=== PATIENT | male | born 1980 | race Caucasian/White ===

== ENCOUNTER 2020-07-17 14:14 | Emergency (ER) | payer MEDICAID, OTHER ==
[2020-07-17] MEDS ORDERED: Cardizem IV 50 MG/10 ML IV ONE ×2 (14:15)
[2020-07-17] MEDS ORDERED: Adenocard IV 6 MG/2 ML IV ONE ×2 (14:36→14:40)
[2020-07-17] MEDS ORDERED: Sodium Chloride 0.9% 1000 ML 1,000 ML ONE (14:36)
[2020-07-17] MEDS ORDERED: CARDIZEM DRIP 100 MG/100 ML D5W 100 ML IV ONE (14:45)
--- NOTE | 2020-07-17 15:05 | ERPHSYRPT ---
- History of Present Illness Source: patient Exam Limitations: no limitations Patient Subjective Stated Complaint: shaking and heart palpitations Triage Nursing Assessment: pt to ED c/o "shaking" and palpitations. pt states he was in [facility] last month aortic dissection. pt states his HR has been approx 150 bpm lasty 2 days, states "when I was in [facility] I was doing this too and they didnt say it was a big deal so I stayed home." denes pain currently. pt appears pale and diaphoretic. heart sounds clear and regular but tachycardic on auscultation. Physician History: 40 yo wm w palpatations x2 days. Pt has a h/o aortic dissection repaired at [facility] on 06/18/20. He denies chest pain/dyspnea/N/V/D/melena/hematochezia/cough/fever. Pt states that he had similar episodes post-op at [facility]. Initial EKG demonstrated probable SVT. Timing/Duration: day(s) (2 days) Activities at Onset: rest Quality: other (No pain) Location: other (No pain) Chest Pain Radiation: no radiation Severity of Pain-Max: none Severity of Pain-Current: none Modifying Factors: Improves With: nothing Nitro Today/Relief: no nitro taken today Aspirin Treatment Today: no aspirin today Associated Symptoms: No nausea, No vomiting, No abdominal pain, No shortness of breath, No heartburn, No diaphoresis, No cough, No chills, No chest pain, No fever, No headaches, No loss of appetite, No malaise, No rash, No syncope, No seizure, No weakness Prior Chest Pain/Cardiac Workup: recently seen/treated (Aortic dissection repair), recent hospitalization Allergies/Adverse Reactions: No Known Drug Allergies Allergy (Unverified 11/03/12 13:04) Home Medications: Atorvastatin Calcium 40 mg PO DAILY 07/17/20 [History] Losartan Potassium 100 mg PO DAILY 07/17/20 [History] Oxycodone HCl 5 mg PO DAILY 07/17/20 [History] carvediloL [Carvedilol] 25 mg PO DAILY 07/17/20 [History] Hx Tetanus, Diphtheria Vaccination/Date Given: Yes Hx Influenza Vaccination/Date Given: No Hx Pneumococcal Vaccination/Date Given: No Immunizations Up to Date: Yes Travel Risk - International Travel Have you traveled outside of the country in past 3 weeks: No - Coronavirus Screening Are you exhibiting any of the following symptoms?: No Close contact with a COVID-19 positive Pt in past 14-21 Days: No - Review of Systems Constitutional: No Symptoms Eyes: No Symptoms Ears, Nose, & Throat: No Symptoms Respiratory: No Symptoms Cardiac: Palpitations, No Chest Pain, No Edema, No Syncope, No Orthopnea, No PND Abdominal/Gastrointestinal: No Symptoms Genitourinary Symptoms: No Symptoms Musculoskeletal: No Symptoms Skin: No Symptoms Neurological: No Symptoms Psychological: No Symptoms Endocrine: No Symptoms Hematologic/Lymphatic: No Symptoms Immunological/Allergic: No Symptoms - Past Medical History Pertinent Past Medical History: Yes Cardiac History: Other Endocrine Medical History: No Pertinent History, Hyperthyroidism Musculoskeletal History: No Pertinent History GI Medical History: No Pertinent History History: No Pertinent History Psycho-Social History: No Pertinent History Male Reproductive Disorders: No Pertinent History Other Medical History: aortic dissection may 2020 - Past Surgical History Past Surgical History: Yes Respiratory: No Pertinent History Gastrointestinal: No Pertinent History Genitourinary: No Pertinent History Musculoskeletal: No Pertinent History, Orthopedic Surgery Male Surgical History: No Pertinent History Other Surgical History: L shoulder - Social History Smoking Status: Current every day smoker How long have you smoked: 16 YEARS Exposure to second hand smoke: Yes Drug Use: marijuana Patient Lives Alone: No Significant Family History: no pertinent family hx - Nursing Vital Signs Nursing Vital Signs: Initial Vital Signs Temperature 98.0 F 07/17/20 14:22 Pulse Rate 140 H 07/17/20 14:22 Respiratory Rate 20 07/17/20 14:22 Blood Pressure 137/107 07/17/20 14:22 O2 Sat by Pulse Oximetry 99 07/17/20 14:22 Pain Scale Pain Intensity 0 - Physical Exam General Appearance: mild distress Eye Exam: PERRL/EOMI, eyes nml inspection Ears, Nose, Throat Exam: normal ENT inspection, TMs normal, pharynx normal, moist mucous membranes Neck Exam: normal inspection, non-tender, supple, full range of motion, No meningismus, No mass, No Brudzinski, No Kernig's, No carotid bruit Respiratory Exam: normal breath sounds, lungs clear, airway intact, No respiratory distress Cardiovascular Exam: other (Regular/Very tachy) Gastrointestinal/Abdomen Exam: soft, normal bowel sounds, No tenderness, No distention Back Exam: normal inspection, normal range of motion, No CVA tenderness, No vertebral tenderness, No decreased range of motion Extremity Exam: normal inspection, normal range of motion Neurologic Exam: alert, oriented x 3, cooperative, blue prints trimmer II-XII nml as tested, normal mood/affect, nml cerebellar function, nml station & gait, sensation nml, No motor deficits, No sensory deficit Skin Exam: normal color, warm, dry, No rash Lymphatic Exam: No adenopathy SpO2 Interpretation: normal SpO2: 98 O2 Delivery: Room Air - Course Nursing assessment & vital signs reviewed: Yes EKG Interpreted by Me: RATE (Probable SVT/Poor R wave progression/ST-T wave changes/LAFB/prolonged QTc), Other (EKG #2 14:49 Aflutter/Poor Rwave progression/LVH/LAFB) Ordered Tests: Active Orders 24 hr Category Date Time Status Member Service Specialist STAT Care 07/17/20 14:51 Completed EKG-ER Only STAT Care 07/17/20 14:33 Completed IV Insertion STAT Care 07/17/20 14:51 Completed IV Insertion-2nd Peripheral STAT Care 07/17/20 14:51 Completed CHEST 1 VIEW (PORTABLE) Stat Exams 07/17/20 14:33 Completed CBC W DIFF Stat Lab 07/17/20 15:20 Completed CMP Stat Lab 07/17/20 15:20 Completed NT PRO BNP Stat Lab 07/17/20 15:20 Completed PROTIME WITH INR Stat Lab 07/17/20 15:20 Completed PTT Stat Lab 07/17/20 15:20 Completed TROPONIN Q3H Lab 07/17/20 15:32 Completed TROPONIN Q3H Lab 07/17/20 17:54 Completed TROPONIN Q3H Lab 07/17/20 20:45 Ordered TROPONIN Q3H Lab 07/17/20 23:45 Ordered Medication Summary Discontinued Medications Generic Name Dose Route Start Last Admin Trade Name Freq PRN Reason Stop Dose Admin Adenosine Confirm 07/17/20 14:36 Adenocard Iv 6 Mg/2 Ml Administered 07/17/20 14:37 Dose 6 mg IV .STK-MED ONE Adenosine Confirm 07/17/20 14:40 Adenocard Iv 6 Mg/2 Ml Administered 07/17/20 14:41 Dose 12 mg IV .STK-MED ONE Heparin Sodium (Beef Lung) 5,000 unit 07/17/20 17:12 07/17/20 17:24 Heparin 5000 Units/0.5 Ml (High Risk Med) IV 07/17/20 17:13 5,000 unit STAT ONE Administration Heparin Sodium (Beef Lung) Confirm 07/17/20 17:21 Heparin 5000 Units/0.5 Ml (High Risk Med) Administered 07/17/20 17:22 Dose 5,000 unit .ROUTE .STK-MED ONE Sodium Chloride Confirm 07/17/20 14:36 Sodium Chloride 0.9% 1000 Ml Administered 07/17/20 14:37 Dose 1,000 mls @ ud .ROUTE .STK-MED ONE Diltiazem HCl Confirm 07/17/20 14:45 Cardizem Drip 100 Mg/100 Ml D5w Administered 07/17/20 14:46 Dose 100 mls @ ud IV .STK-MED ONE Diltiazem HCl 100 mls @ 5 mls/hr 07/17/20 15:33 07/17/20 15:32 Cardizem Drip 100 Mg/100 Ml D5w IV 08/16/20 15:32 8 mg/hr .Q20H PRN 8 mls/hr HEART RATE/ A-FIB Titration Protocol 5 MG/HR Heparin Sodium/Dextrose 25,000 units in 250 mls @ 4 mls/hr 07/17/20 17:30 07/17/20 17:24 Heparin 25,000 Units/D5w 250ml Premix IV 08/16/20 17:29 4 ml/hr .Q24H SAKSHI 4 mls/hr Administration Heparin Sodium/Dextrose Confirm 07/17/20 17:21 Heparin 25,000 Units/D5w 250ml Premix Administered 07/17/20 17:22 Dose 25,000 units in 250 mls @ ud IV .STK-MED ONE Lab/Rad Data: Laboratory Result Diagrams 07/17/20 15:20 07/17/20 15:20 Laboratory Results 07/17/20 07/17/20 07/17/20 Range/Units 17:54 15:32 15:20 WBC (4.0-10.5) K/mm3 RBC (4.1-5.6) M/mm3 Hgb (12.5-18.0) gm/dl Hct (42-50) % MCV (78-100) fl MCH (26-32) pg MCHC (32-36) g/dl RDW (11.5-14.0) % Plt Count (150-450) K/mm3 MPV (7.5-11.0) fl Gran % (36.0-66.0) % Eos # (Auto) (0-0.5) Absolute Lymphs (auto) (1.0-4.6) Absolute Monos (auto) (0.0-1.3) Lymphocytes % (24.0-44.0) % Monocytes % (0.0-12.0) % Eosinophils % (0.00-5.0) % Basophils % (0.0-0.4) % Absolute Granulocytes (1.4-6.9) Basophils # (0-0.4) PT 16.4 H (8.83-12.87) SECONDS INR 1.45 (0.8-3.0) APTT 39.7 H (24.1-36.1) SECONDS Sodium (137-145) mmol/L Potassium (3.5-5.1) mmol/L Chloride (98-107) mmol/L Carbon Dioxide (22-30) mmol/L Anion Gap (5-15) MEQ/L BUN (9-20) mg/dL Creatinine (0.66-1.25) mg/dL Estimated GFR ML/MIN Glucose (74-106) mg/dL Calcium (8.4-10.2) mg/dL Total Bilirubin (0.2-1.3) mg/dL AST (17-59) U/L ALT (0-50) U/L Alkaline Phosphatase (38-126) U/L Troponin I 0.041 H* 0.039 H* (0.000-0.034) ng/mL NT-Pro-B Natriuret Pep (0-450) pg/mL Serum Total Protein (6.3-8.2) g/dL Albumin (3.5-5.0) g/dL 07/17/20 07/17/20 Range/Units 15:20 15:20 WBC 13.2 H (4.0-10.5) K/mm3 RBC 3.01 L (4.1-5.6) M/mm3 Hgb 9.2 L (12.5-18.0) gm/dl Hct 30.0 L (42-50) % MCV 99.7 (78-100) fl MCH 30.6 (26-32) pg MCHC 30.7 L (32-36) g/dl RDW 13.8 (11.5-14.0) % Plt Count 525 H (150-450) K/mm3 MPV 9.7 (7.5-11.0) fl Gran % 72.2 H (36.0-66.0) % Eos # (Auto) 0.23 (0-0.5) Absolute Lymphs (auto) 2.17 (1.0-4.6) Absolute Monos (auto) 1.23 (0.0-1.3) Lymphocytes % 16.4 L (24.0-44.0) % Monocytes % 9.3 (0.0-12.0) % Eosinophils % 1.7 (0.00-5.0) % Basophils % 0.4 (0.0-0.4) % Absolute Granulocytes 9.54 H (1.4-6.9) Basophils # 0.05 (0-0.4) PT (8.83-12.87) SECONDS INR (0.8-3.0) APTT (24.1-36.1) SECONDS Sodium 138 (137-145) mmol/L Potassium 4.4 (3.5-5.1) mmol/L Chloride 102 (98-107) mmol/L Carbon Dioxide 29 (22-30) mmol/L Anion Gap 12.4 (5-15) MEQ/L BUN 14 (9-20) mg/dL Creatinine 1.07 (0.66-1.25) mg/dL Estimated GFR > 60.0 ML/MIN Glucose 122 H (74-106) mg/dL Calcium 9.8 (8.4-10.2) mg/dL Total Bilirubin 0.60 (0.2-1.3) mg/dL AST 14 L (17-59) U/L ALT 12 (0-50) U/L Alkaline Phosphatase 88 (38-126) U/L Troponin I (0.000-0.034) ng/mL NT-Pro-B Natriuret Pep 3800 H (0-450) pg/mL Serum Total Protein 8.3 H (6.3-8.2) g/dL Albumin 4.3 (3.5-5.0) g/dL - Progress Progress: improved Progress Note: 07/17/20 15:08 Pt w probable SVT, so 2 IV's placed/Adenosine 6mg given IV while pt monitored/transient improvement in rate/possible Aflutter/12mg IV adenosine giv en IV as rate increased/Definite Aflutter on monitor/15mg IV Cardizem given w improvement in rate to mid 80's/Good BP 07/17/20 19:43 Caredizem drip started at 5mg/hr Aflutter rate again accelerated, so 10mg IV Cardizem given with good response in rate/BP stable Drip increased to 8mg/hr Spoke w Dr. Hardin at [facility] who accepted pt. Heparin bolus 5000units/1000hr given/started at Dr. Hardin's request. [facility] came from [place] to transport pt. Pt stable when they assumed care. Counseled pt/family regarding: lab results, diagnosis, need for follow-up, rad results - Departure Departure Disposition: Transfer Clinical Impression: Atrial flutter with rapid ventricular response, Elevated troponin Condition: Stable Critical Care Time: Yes Critical Care Time(excluding separately billable procedures): Critical 30-74 mins Referrals: VANNESA JORDAN [ACTIVE STAFF] -
--- NOTE | 2020-07-17 15:10 | XRAY ---
Indication: Supraventricular tachycardia. Comparison: None Portable apical lordotic chest is clear. Heart is borderline enlarged. Bony thorax intact with sternotomy wires and distal left clavicle resection. Impression: Nonacute chest.
[2020-07-17] MEDS ORDERED: CARDIZEM DRIP 100 MG/100 ML D5W 100 ML IV PRN (15:33)
[2020-07-17 15:49] LABS: Absolute Neutrophil Ct (ANC) 9.54 (1.4-6.9); BASOPHIL % 0.4 % (0.0-0.4); Basophil (Absolute #) 0.05 (0-0.4); Eosinophil % 1.7 % (0.00-5.0); Eosinophil (Absolute #) 0.23 (0-0.5); Hemoglobin 9.2 gm/dl (12.5-18.0); Lymphocyte (Absolute #) 2.17 (1.0-4.6); Lymphocytes % 16.4 % (24.0-44.0); Mean Cell Volume 99.7 fl (78-100); Mean Corpuscular Hemoglobin 30.6 pg (26-32); Mean Corpuscular Hgb Concent. 30.7 g/dl (32-36); Mean Platelet Volume 9.7 fl (7.5-11.0); Monocyte (Absolute #) 1.23 (0.0-1.3); Monocytes % 9.3 % (0.0-12.0); Neutrophil % 72.2 % (36.0-66.0); Platelet Count 525 K/mm3 (150-450); Red Blood Count 3.01 M/mm3 (4.1-5.6); Red Cell Distribution Width 13.8 % (11.5-14.0); White Blood Count 13.2 K/mm3 (4.0-10.5)
[2020-07-17 15:50] LABS: INR 1.45 (0.8-3.0); PROTIME 16.4 SECONDS (8.83-12.87)
[2020-07-17 15:52] LABS: PTT 39.7 SECONDS (24.1-36.1)
[2020-07-17 16:07] LABS: ALBUMIN 4.3 g/dL (3.5-5.0); ALKALINE PHOSPHATASE 88 U/L (38-126); ANION GAP 12.4 MEQ/L (5-15); BLOOD UREA NITROGEN 14 mg/dL (9-20); CHLORIDE 102 mmol/L (98-107); Calcium 9.8 mg/dL (8.4-10.2); Carbon Dioxide 29 mmol/L (22-30); Creatinine 1 1.07 mg/dL (0.66-1.25); EST GLOMERULAR FILTRATION RATE > 60.0 ML/MIN; Glucose 122 mg/dL (74-106); NT PRO BNP 3800 pg/mL (0-450); Potassium 4.4 mmol/L (3.5-5.1); SGOT/AST 14 U/L (17-59); SGPT/ALT 12 U/L (0-50); SODIUM 138 mmol/L (137-145); Total Protein 8.3 g/dL (6.3-8.2)
[2020-07-17] MEDS ORDERED: Heparin 5000 UNITS/0.5 ML (HIGH RISK MED) IV ONE (17:12)
[2020-07-17] MEDS ORDERED: Heparin 25,000 units/D5W 250ML PREMIX 25,000 UNITS/250 ML BAG IV ONE (17:21)
[2020-07-17] MEDS ORDERED: Heparin 5000 UNITS/0.5 ML (HIGH RISK MED) ONE (17:21)
[2020-07-17] MEDS ORDERED: Heparin 25,000 units/D5W 250ML PREMIX 25,000 UNITS/250 ML BAG IV SCH (17:30)
[2020-07-17 17:52] VITALS: BP 138/92; PULSE 78
[2020-07-17 19:47] VITALS: O2SAT 98
== END 2020-07-17 18:49 | disposition short-term general hospital (02) ==
LOC: ED 14:14
DX: I48.92 Unspecified atrial flutter (principal); R79.89 Other specified abnormal findings of blood chemistry
CPT/HCPCS: 36000; 36415; 71045; 80053; 83880; 84484; 85025; 85610; 85730; 93005; 93041; 96365; 96367; 96374; 96375; 99285; J0153; J1644

== ENCOUNTER 2020-08-30 03:50 | Emergency (ER) | payer OTHER ==
--- NOTE | 2020-08-30 04:24 | ERPHSYRPT ---
<THOM HILARIO - Last Filed: 08/30/20 05:34> - History of Present Illness Time Seen by Provider: 08/30/20 04:24 Historian: patient Exam Limitations: no limitations Patient Subjective Stated Complaint: I felt dizzy at home and checked my blood pressure and it was high Triage Nursing Assessment: Pt reported single episode of dizziness lasting roughl 1 minute at home followed by a BP reading of 170/100 on his home monitor. Patient reported aortic dissection repair in may. patient also reported smoking marijuana this evening. Patient denied headache, visual/auditory disturbances, chest pain, palpitations, or shortness of breath. Pupils 3mm brisk direct and consensual reaction. Oral mucosa pink/moist. neck supple non- tender with trachea midline. No noted JVD at HOB 30 deg. Heart tones S1 S2 bounding regular rate and rhythm without extra sounds. Lungs clear with adequate airflow Peripheral pulses +3 bilateral. Abdomen soft non-distened with bowel sounds present in all quadrants. No noted bruits. Femoral pulses equal bilateral. 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 about 2 months ago at [facility] and about one month ago developed a-flutter with RVR), recent hospitalization ([facility] May and June 2020) Nitro Today/Relief: no nitro taken today Aspirin Treatment Today: no aspirin today Allergies/Adverse Reactions: No Known Drug Allergies Allergy (Unverified 08/30/20 03:56) Home Medications: Atorvastatin Calcium 40 mg PO DAILY 07/17/20 [History] Losartan Potassium 100 mg PO DAILY 07/17/20 [History] carvediloL [Carvedilol] 25 mg PO DAILY 07/17/20 [History] Amiodarone HCl 200 mg [Cordarone 200 MG] 1 tab PO DAILY 08/30/20 [History] Apixaban [Eliquis] 1 tab PO BID 08/30/20 [History] Hx Tetanus, Diphtheria Vaccination/Date Given: Yes Hx Influenza Vaccination/Date Given: Yes Hx Pneumococcal Vaccination/Date Given: No Travel Risk - International Travel Have you traveled outside of the country in past 3 weeks: No - Coronavirus Screening Are you exhibiting any of the following symptoms?: No Close contact with a COVID-19 positive Pt in past 14-21 Days: No - Review of Systems Constitutional: No Symptoms Eyes: No Symptoms Ears, Nose, & Throat: No Symptoms Respiratory: No Symptoms Cardiac: No Symptoms Abdominal/Gastrointestinal: No Symptoms Genitourinary Symptoms: No Symptoms Musculoskeletal: No Symptoms Skin: No Symptoms Neurological: No Symptoms Psychological: No Symptoms Endocrine: No Symptoms Hematologic/Lymphatic: No Symptoms Immunological/Allergic: No Symptoms All Other Systems: Reviewed and Negative - Past Medical History Pertinent Past Medical History: Yes Neurological History: No Pertinent History ENT History: No Pertinent History Cardiac History: Aneurysm, Other (dissection of thoracic aorta) Respiratory History: No Pertinent History Endocrine Medical History: No Pertinent History, Hyperthyroidism Musculoskeletal History: No Pertinent History GI Medical History: No Pertinent History History: No Pertinent History Psycho-Social History: No Pertinent History Male Reproductive Disorders: No Pertinent History Other Medical History: aortic dissection may 2020 - Past Surgical History Past Surgical History: Yes Cardiac: Vascular Surgery Respiratory: No Pertinent History Gastrointestinal: No Pertinent History Genitourinary: No Pertinent History Musculoskeletal: No Pertinent History, Orthopedic Surgery Male Surgical History: No Pertinent History Other Surgical History: L shoulder - Social History Smoking Status: Current every day smoker How long have you smoked: 16 YEARS Exposure to second hand smoke: Yes Drug Use: marijuana Patient Lives Alone: No Significant Family History: no pertinent family hx - Physical Exam General Appearance: mild distress Eye Exam: PERRL/EOMI Ears, Nose, Throat Exam: normal ENT inspection Neck Exam: normal inspection Respiratory Exam: normal breath sounds Cardiovascular Exam: regular rate/rhythm Gastrointestinal/Abdomen Exam: soft, normal bowel sounds Male Genitalia Exam: other (defer) Rectal Exam: deferred Back Exam: normal inspection Extremity Exam: normal inspection Neurologic Exam: alert, oriented x 3, cooperative Skin Exam: normal color, warm, dry SpO2 Interpretation: normal SpO2: 97 O2 Delivery: Room Air - Course Nursing assessment & vital signs reviewed: Yes EKG Interpreted by Me: RATE (70), Sinus Rhythm, NORMAL AXIS, NORMAL INTERVALS, NORMAL QRS, Non-specific ST Changes, Other (LAE, LAFB, LVH) - Progress Progress Note: 08/30/20 05:[address] Delgado 0600. - Departure Departure Disposition: Home Clinical Impression: Hypertension Condition: Stable Critical Care Time: Yes Critical Care Time(excluding separately billable procedures): Critical 30-74 mins Referrals: TY SCHAEFER [Primary Care Provider] - <ROB DELGADO - Last Filed: 08/30/20 07:11> - Nursing Vital Signs Nursing Vital Signs: Initial Vital Signs Respiratory Rate 14 08/30/20 03:51 Blood Pressure 215/128 08/30/20 03:51 O2 Sat by Pulse Oximetry 98 08/30/20 03:51 Pain Scale Pain Intensity 0 Ordered Tests: Active Orders 24 hr Category Date Time Status Automatic Operator STAT Care 08/30/20 04:32 Active EKG-ER Only STAT Care 08/30/20 04:31 Active IV Insertion STAT Care 08/30/20 04:31 Active ABDOMEN AND PELVIS W CONTRAST [CT] Stat Exams 08/30/20 06:04 Ordered CTA CHEST W AND/OR WO [CT] Stat Exams 08/30/20 06:04 Ordered CBC W DIFF Stat Lab 08/30/20 04:35 Completed CMP Stat Lab 08/30/20 04:35 Completed TROPONIN Q3H Lab 08/30/20 04:35 Completed TROPONIN Q3H Lab 08/30/20 07:45 Ordered TROPONIN Q3H Lab 08/30/20 10:45 Ordered TROPONIN Q3H Lab 08/30/20 13:45 Ordered TROPONIN Q3H Lab 08/30/20 16:45 Ordered UA W/RFX UR CULTURE Stat Lab 08/30/20 05:50 Completed Medication Summary Discontinued Medications Generic Name Dose Route Start Last Admin Trade Name Freq PRN Reason Stop Dose Admin Hydralazine HCl 20 mg 08/30/20 05:17 08/30/20 05:21 Apresoline 20 Mg/Ml Inj IV 08/30/20 05:18 20 mg STAT ONE Administration Hydralazine HCl Confirm 08/30/20 05:20 Apresoline 20 Mg/Ml Inj Administered 08/30/20 05:21 Dose 20 mg .ROUTE .STK-MED ONE Labetalol HCl 20 mg 08/30/20 04:25 08/30/20 04:36 Trandate 20 Mg/5 Ml Syringe IV 08/30/20 04:26 20 mg STAT ONE Administration Lab/Rad Data: Laboratory Result Diagrams 08/30/20 04:35 08/30/20 04:35 Laboratory Results 08/30/20 08/30/20 08/30/20 Range/Units 05:50 04:35 04:35 WBC (4.0-10.5) K/mm3 RBC (4.1-5.6) M/mm3 Hgb (12.5-18.0) gm/dl Hct (42-50) % MCV (78-100) fl MCH (26-32) pg MCHC (32-36) g/dl RDW (11.5-14.0) % Plt Count (150-450) K/mm3 MPV (7.5-11.0) fl Gran % (36.0-66.0) % Eos # (Auto) (0-0.5) Absolute Lymphs (auto) (1.0-4.6) Absolute Monos (auto) (0.0-1.3) Lymphocytes % (24.0-44.0) % Monocytes % (0.0-12.0) % Eosinophils % (0.00-5.0) % Basophils % (0.0-0.4) % Absolute Granulocytes (1.4-6.9) Basophils # (0-0.4) Sodium 138 (137-145) mmol/L Potassium 4.1 (3.5-5.1) mmol/L Chloride 102 (98-107) mmol/L Carbon Dioxide 29 (22-30) mmol/L Anion Gap 11.4 (5-15) MEQ/L BUN 16 (9-20) mg/dL Creatinine 0.99 (0.66-1.25) mg/dL Estimated GFR > 60.0 ML/MIN Glucose 121 H (74-106) mg/dL Calcium 10.0 (8.4-10.2) mg/dL Total Bilirubin 0.50 (0.2-1.3) mg/dL AST 21 (17-59) U/L ALT 11 (0-50) U/L Alkaline Phosphatase 92 (38-126) U/L Troponin I 0.013 (0.000-0.034) ng/mL Serum Total Protein 8.7 H (6.3-8.2) g/dL Albumin 4.9 (3.5-5.0) g/dL Urine Color COLORLESS (YELLOW) Urine Appearance CLEAR (CLEAR) Urine pH 7.0 (5-6) Ur Specific [place] 1.003 (1.005-1.025) Urine Protein NEGATIVE (Negative) Urine Ketones NEGATIVE (NEGATIVE) Urine Blood SMALL (0-5) Silviano/ul Urine Nitrite NEGATIVE (NEGATIVE) Urine Bilirubin NEGATIVE (NEGATIVE) Urine Urobilinogen NEGATIVE (0-1) mg/dL Ur Leukocyte Esterase NEGATIVE (NEGATIVE) Urine WBC (Auto) NONE (0-5) /HPF Urine RBC (Auto) 3-5 (0-2) /HPF U Epithel Cells (Auto) NONE (FEW) /HPF Urine Bacteria (Auto) NONE (NEGATIVE) /HPF Urine Mucus (Auto) SLIGHT (NEGATIVE) /HPF Urine Culture Reflexed NO (NO) Urine Glucose NEGATIVE (NEGATIVE) mg/dL 08/30/20 Range/Units 04:35 WBC 13.3 H (4.0-10.5) K/mm3 RBC 4.05 L (4.1-5.6) M/mm3 Hgb 12.0 L (12.5-18.0) gm/dl Hct 38.4 L (42-50) % MCV 94.8 (78-100) fl MCH 29.6 (26-32) pg MCHC 31.3 L (32-36) g/dl RDW 15.2 H (11.5-14.0) % Plt Count 332 (150-450) K/mm3 MPV 10.7 (7.5-11.0) fl Gran % 72.1 H (36.0-66.0) % Eos # (Auto) 0.39 (0-0.5) Absolute Lymphs (auto) 2.29 (1.0-4.6) Absolute Monos (auto) 0.99 (0.0-1.3) Lymphocytes % 17.3 L (24.0-44.0) % Monocytes % 7.5 (0.0-12.0) % Eosinophils % 2.9 (0.00-5.0) % Basophils % 0.2 (0.0-0.4) % Absolute Granulocytes 9.56 H (1.4-6.9) Basophils # 0.03 (0-0.4) Sodium (137-145) mmol/L Potassium (3.5-5.1) mmol/L Chloride (98-107) mmol/L Carbon Dioxide (22-30) mmol/L Anion Gap (5-15) MEQ/L BUN (9-20) mg/dL Creatinine (0.66-1.25) mg/dL Estimated GFR ML/MIN Glucose (74-106) mg/dL Calcium (8.4-10.2) mg/dL Total Bilirubin (0.2-1.3) mg/dL AST (17-59) U/L ALT (0-50) U/L Alkaline Phosphatase (38-126) U/L Troponin I (0.000-0.034) ng/mL Serum Total Protein (6.3-8.2) g/dL Albumin (3.5-5.0) g/dL Urine Color (YELLOW) Urine Appearance (CLEAR) Urine pH (5-6) Ur Specific [place] (1.005-1.025) Urine Protein (Negative) Urine Ketones (NEGATIVE) Urine Blood (0-5) Silviano/ul Urine Nitrite (NEGATIVE) Urine Bilirubin (NEGATIVE) Urine Urobilinogen (0-1) mg/dL Ur Leukocyte Esterase (NEGATIVE) Urine WBC (Auto) (0-5) /HPF Urine RBC (Auto) (0-2) /HPF U Epithel Cells (Auto) (FEW) /HPF Urine Bacteria (Auto) (NEGATIVE) /HPF Urine Mucus (Auto) (NEGATIVE) /HPF Urine Culture Reflexed (NO) Urine Glucose (NEGATIVE) mg/dL - Progress Progress: improved, re-examined Air Movement: good Progress Note: 08/30/20 07:10 Medical decision making: This patient was signed out to me at 6 AM. In the discussion with Dr. Hialrio, he felt that if the patient was asymptomatic without chest pain, dizziness and his CT of his chest was negative and blood pressure was under better control, patient could be discharged to home. Patient has not yet taken his blood pressure medication this morning. We will await the CTA of chest results, reexamine the patient and recheck his blood pressure at the time of final disposition.
[2020-08-30] MEDS: TRANDATE 20 MG/5 ML SYRINGE IV ONE (04:36)
[2020-08-30 04:38] LABS: Absolute Neutrophil Ct (ANC) 9.56 (1.4-6.9); BASOPHIL % 0.2 % (0.0-0.4); Basophil (Absolute #) 0.03 (0-0.4); Eosinophil % 2.9 % (0.00-5.0); Eosinophil (Absolute #) 0.39 (0-0.5); Hematocrit 38.4 % (42-50); Lymphocyte (Absolute #) 2.29 (1.0-4.6); Lymphocytes % 17.3 % (24.0-44.0); Mean Cell Volume 94.8 fl (78-100); Mean Corpuscular Hemoglobin 29.6 pg (26-32); Mean Corpuscular Hgb Concent. 31.3 g/dl (32-36); Mean Platelet Volume 10.7 fl (7.5-11.0); Monocyte (Absolute #) 0.99 (0.0-1.3); Monocytes % 7.5 % (0.0-12.0); Neutrophil % 72.1 % (36.0-66.0); Platelet Count 332 K/mm3 (150-450); Red Blood Count 4.05 M/mm3 (4.1-5.6); Red Cell Distribution Width 15.2 % (11.5-14.0); White Blood Count 13.3 K/mm3 (4.0-10.5)
[2020-08-30 04:43] LABS: ALBUMIN 4.9 g/dL (3.5-5.0); ALKALINE PHOSPHATASE 92 U/L (38-126); ANION GAP 11.4 MEQ/L (5-15); BLOOD UREA NITROGEN 16 mg/dL (9-20); CHLORIDE 102 mmol/L (98-107); Carbon Dioxide 29 mmol/L (22-30); Creatinine 1 0.99 mg/dL (0.66-1.25); EST GLOMERULAR FILTRATION RATE > 60.0 ML/MIN; Glucose 121 mg/dL (74-106); Potassium 4.1 mmol/L (3.5-5.1); SGOT/AST 21 U/L (17-59); SGPT/ALT 11 U/L (0-50); SODIUM 138 mmol/L (137-145); Total Protein 8.7 g/dL (6.3-8.2)
[2020-08-30] MEDS ORDERED: APRESOLINE 20 MG/ML INJ ONE ×2 (05:20→11:27)
[2020-08-30] MEDS: APRESOLINE 20 MG/ML INJ IV ONE ×2 (05:21→11:28)
[2020-08-30 06:02] LABS: Appearance CLEAR (CLEAR); Bilirubin NEGATIVE (NEGATIVE); Blood SMALL Ery/ul (0-5); Glucose NEGATIVE (NEGATIVE); Ketones NEGATIVE (NEGATIVE); Leukocyte Esterase NEGATIVE (NEGATIVE); Mucus SLIGHT /HPF (NEGATIVE); Nitrite NEGATIVE (NEGATIVE); Protein,Urine Dip NEGATIVE (Negative); Specific Gravity 1.003 (1.005-1.025); Urobilinogen NEGATIVE mg/dL (0-1)
--- NOTE | 2020-08-30 09:34 | XRAY ---
Indication: Hypertension. Aortic dissection with surgery June 18, 2020. Multiple contiguous axial images obtained through the abdomen and pelvis using 80 cc of Isovue-370 contrast. Comparison: Outside CT exam from [facility] dated June 18, 2020. CT chest reported separately. Grossly stable dissection involving the thoracoabdominal aorta and both common iliac arteries. Maximum diameter at the level of the celiac artery is 2.9 x 3.0 cm unchanged. Mid aorta just below the renal arteries 2.3 x 2.3 cm, previously 2.1 x 2.3 cm. Distal aorta just above the bifurcation is 2.5 x 2.7 cm, previously 2.1 x 2.2 cm maximum diameter of the left and right right common iliac arteries 1.9 cm, previously 1.7 cm. The celiac, superior mesenteric, left renal, and inferior mesenteric arteries again are supplied by the true lumen. Right renal artery again supplied by false lumen. No free fluid, air, or evidence for active hemorrhage. Noncontrasted stomach and bowel loops appear nonobstructed. Stable 1.3 cm right mid renal cortical cyst. Remaining liver, gallbladder, pancreas, spleen, adrenal glands, kidneys, ureters, and bladder appear unremarkable. No pathologic retroperitoneal lymphadenopathy. Osseous structures intact again with incidental L5-S1 disc space loss and bilateral L5 spondylolysis with grade 2 spondylolisthesis. Impression: 1. 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 Negative for active hemorrhage. 2. Stable incidental small right renal cyst and chronic bony findings. Comment: Preliminary interpretation was made by [facility]. No critical discrepancy.
--- NOTE | 2020-08-30 09:37 | XRAY ---
Indication: Hypertension. Aortic dissection with surgery June 18, 2020. Multiple contiguous axial images obtained through the chest using 80 cc of Isovue-370 contrast and PE protocol. Comparison: Outside CT PE exam from [facility] dated June 18, 2020. There is good opacification of the pulmonary arteries to include the lobar and segmental branches. No pulmonary embolus. Heart is not enlarged. No pericardial effusion. Aorta again demonstrates dissection beginning at the level of the arch just distal to origin left subclavian artery extending into the abdominal aorta further detailed on CT abdomen/pelvis of the same day. Maximum diameter at the level arch and proximal descending aorta remains 3.8 cm. Maximum diameter of the mid descending aorta is 3.4 cm, previously 2.9 cm. Maximum diameter distal descending aorta is 3.3 cm, previously 2.7 cm. No free fluid or evidence for active hemorrhage. Stable small paratracheal/subcarinal lymph nodes. No pathologic lymphadenopathy. Lungs are inflated and clear. Bony thorax intact with new sternotomy wires. CT abdomen/pelvis reported separately. Impression: 1. Negative pulmonary embolus. 2. Status post thoracic surgery again with [place] type B aortic dissection as detailed above. Comment: Preliminary interpretation was made by C. No critical discrepancy.
[2020-08-30] MEDS ORDERED: Ativan 2 MG/1 ML VIAL ONE (10:57)
[2020-08-30] MEDS ORDERED: LOPRESSOR 5 MG/5 ML INJECTION IV ONE (10:57)
[2020-08-30] MEDS: Ativan 2 MG/1 ML VIAL IV ONE (10:58)
[2020-08-30] MEDS: LOPRESSOR 5 MG/5 ML INJECTION IV ONE (10:59)
[2020-08-30 11:07] VITALS: PULSE 67; O2SAT 97
[2020-08-30 11:54] VITALS: BP 139/81
== END 2020-08-30 11:53 | disposition home or self-care (01) ==
LOC: ED 03:50
DX: I10 Essential (primary) hypertension (principal)
CPT/HCPCS: 36000; 36415; 71275; 74177; 80053; 81001; 84484; 85025; 93005; 93041; 96374; 96375; 96376; 99285; 99291; J0360; J2060

== ENCOUNTER 2020-09-09 22:14 | Emergency (ER) | payer OTHER ==
[2020-09-09] MEDS ORDERED: APRESOLINE 20 MG/ML INJ IV ONE (23:24)
[2020-09-09 23:26] LABS: BASOPHIL % 0.5 % (0.0-0.4); Basophil (Absolute #) 0.05 (0-0.4); Eosinophil % 2.6 % (0.00-5.0); Eosinophil (Absolute #) 0.28 (0-0.5); Hematocrit 40.2 % (42-50); Hemoglobin 12.9 gm/dl (12.5-18.0); Lymphocytes % 18.4 % (24.0-44.0); Mean Cell Volume 93.1 fl (78-100); Mean Corpuscular Hemoglobin 29.9 pg (26-32); Mean Corpuscular Hgb Concent. 32.1 g/dl (32-36); Mean Platelet Volume 11.1 fl (7.5-11.0); Monocyte (Absolute #) 0.74 (0.0-1.3); Monocytes % 6.8 % (0.0-12.0); Neutrophil % 71.7 % (36.0-66.0); Platelet Count 311 K/mm3 (150-450); Red Blood Count 4.32 M/mm3 (4.1-5.6); Red Cell Distribution Width 15.5 % (11.5-14.0); White Blood Count 10.9 K/mm3 (4.0-10.5)
--- NOTE | 2020-09-09 23:26 | ERPHSYRPT ---
- History of Present Illness Historian: patient Exam Limitations: no limitations Patient Subjective Stated Complaint: b/p running high today at dr. vasquez and after taking new med, b/p remains high a few hours later Triage Nursing Assessment: pt had dr vaqsuez today and b/p was elevated in office. Pt was started on new meds, hydralazine 25mg po q6hrs prn for b/p >170 and esc italopram 10mg po daily. Pt took both of these at 1800 tonight. Pt states, "my b/p remained up at 192/96 at home so I came to ER". Pt c/o sternal chest discomfort as well, which also started at approx 2145 tonight. Timing/Duration: today Activities at Onset: none Quality: pressure Location: substernal Chest Pain Radiation: no radiation Severity of Pain-Max: mild Severity of Pain-Current: none Modifying Factors: Improves With: nothing Associated Symptoms: denies symptoms Prior Chest Pain/Cardiac Workup: recently seen/treated (Aortic dissection) Nitro Today/Relief: no nitro taken today Aspirin Treatment Today: no aspirin today Allergies/Adverse Reactions: No Known Drug Allergies Allergy (Verified 09/09/20 22:53) Home Medications: Atorvastatin Calcium 40 mg PO DAILY 07/17/20 [History] Losartan Potassium 100 mg PO DAILY 07/17/20 [History] carvediloL [Carvedilol] 25 mg PO BID 07/17/20 [History] Apixaban [Eliquis] 1 tab PO BID 08/30/20 [History] Escitalopram Oxalate 10 mg PO DAILY 09/09/20 [History] Hydralazine HCl 25 mg PO Q6H PRN 09/09/20 [History] Hx Tetanus, Diphtheria Vaccination/Date Given: Yes Hx Influenza Vaccination/Date Given: Yes Hx Pneumococcal Vaccination/Date Given: No Immunizations Up to Date: Yes Travel Risk - International Travel Have you traveled outside of the country in past 3 weeks: No - Coronavirus Screening Are you exhibiting any of the following symptoms?: No Close contact with a COVID-19 positive Pt in past 14-21 Days: No - Review of Systems Constitutional: No Fever, No Chills Eyes: No Symptoms Ears, Nose, & Throat: No Symptoms Respiratory: No Cough, No Dyspnea Cardiac: Chest Pain, No Edema, No Syncope Abdominal/Gastrointestinal: No Abdominal Pain, No Nausea, No Vomiting, No Diarrhea Genitourinary Symptoms: No Dysuria Musculoskeletal: No Back Pain, No Neck Pain Skin: No Rash Neurological: No Dizziness, No Focal Weakness, No Sensory Changes Psychological: Anxiety, No Suicidal Ideations, No Homicidal Ideations, No Emotional Lability, No Hallucinations Endocrine: No Symptoms All Other Systems: Reviewed and Negative - Past Medical History Pertinent Past Medical History: Yes Neurological History: No Pertinent History ENT History: No Pertinent History Cardiac History: Aneurysm, Hypertension, Other Respiratory History: No Pertinent History Endocrine Medical History: No Pertinent History Musculoskeletal History: No Pertinent History GI Medical History: No Pertinent History History: No Pertinent History Psycho-Social History: Anxiety Male Reproductive Disorders: No Pertinent History Other Medical History: aortic dissection may 2020 - Past Surgical History Past Surgical History: Yes Neuro Surgical History: No Pertinent History Cardiac: Vascular Surgery Respiratory: No Pertinent History Gastrointestinal: No Pertinent History Genitourinary: No Pertinent History Musculoskeletal: No Pertinent History, Orthopedic Surgery Male Surgical History: No Pertinent History Other Surgical History: L shoulder, aortic dissection in May, - Social History Smoking Status: Current every day smoker How long have you smoked: 22 Exposure to second hand smoke: Yes Drug Use: none Patient Lives Alone: No Significant Family History: no pertinent family hx - Nursing Vital Signs Nursing Vital Signs: Initial Vital Signs Temperature 98.1 F 09/09/20 22:41 Pulse Rate 68 09/09/20 22:41 Respiratory Rate 16 09/09/20 22:41 Blood Pressure 206/122 09/09/20 22:41 O2 Sat by Pulse Oximetry 97 09/09/20 22:41 Pain Scale Pain Intensity 3 - Physical Exam General Appearance: alert, anxiety Eye Exam: PERRL/EOMI, eyes nml inspection Ears, Nose, Throat Exam: normal ENT inspection, moist mucous membranes Neck Exam: normal inspection, non-tender, supple, full range of motion Respiratory Exam: normal breath sounds, lungs clear, No respiratory distress Cardiovascular Exam: regular rate/rhythm, normal heart sounds Gastrointestinal/Abdomen Exam: soft, No tenderness, No mass Back Exam: normal inspection, No CVA tenderness, No vertebral tenderness Extremity Exam: normal inspection, normal range of motion Neurologic Exam: alert, oriented x 3, cooperative, normal mood/affect, sensation nml, No motor deficits Skin Exam: normal color, warm, dry SpO2 Interpretation: normal SpO2: 98 - Course Nursing assessment & vital signs reviewed: Yes EKG Interpreted by Me: Sinus Rhythm, NORMAL AXIS, NORMAL INTERVALS, NORMAL QRS, Other (LVH, IRBBB, LAE) - Radiology Exams Chest X-ray Interpretation: Reviewed by me, Negative, No Pneumonia, No Pneumothorax, No Infiltrates Ordered Tests: Active Orders 24 hr Category Date Time Status EKG-ER Only STAT Care 09/09/20 22:49 Completed IV Insertion STAT Care 09/09/20 22:54 Completed CHEST 1 VIEW (PORTABLE) Stat Exams 09/09/20 22:54 Taken CBC W DIFF Stat Lab 09/09/20 23:00 Completed CMP Stat Lab 09/09/20 23:00 Completed MAGNESIUM Stat Lab 09/09/20 23:00 Completed TROPONIN Q3H Lab 09/09/20 23:00 Completed UA W/RFX UR CULTURE Stat Lab 09/09/20 23:09 Completed Urine Triage Profile Stat Lab 09/09/20 23:09 Completed Medication Summary Discontinued Medications Generic Name Dose Route Start Last Admin Trade Name Freq PRN Reason Stop Dose Admin Alprazolam 0.5 mg 09/10/20 00:33 09/10/20 00:44 Xanax 0.5 Mg PO 09/10/20 00:34 0.5 mg STAT ONE Administration Alprazolam Confirm 09/10/20 00:43 Xanax 0.5 Mg Administered 09/10/20 00:44 Dose 0.5 mg .ROUTE .STK-MED ONE Hydralazine HCl 20 mg 09/09/20 23:24 09/09/20 23:42 Apresoline 20 Mg/Ml Inj IV 09/09/20 23:25 20 mg STAT ONE Administration Hydralazine HCl Confirm 09/09/20 23:41 Apresoline 20 Mg/Ml Inj Administered 09/09/20 23:42 Dose 20 mg .ROUTE .STK-MED ONE Lab/Rad Data: Laboratory Result Diagrams 09/09/20 23:00 09/09/20 23:00 Laboratory Results 09/09/20 09/09/20 09/09/20 Range/Units 23:09 23:09 23:00 WBC (4.0-10.5) K/mm3 RBC (4.1-5.6) M/mm3 Hgb (12.5-18.0) gm/dl Hct (42-50) % MCV (78-100) fl MCH (26-32) pg MCHC (32-36) g/dl RDW (11.5-14.0) % Plt Count (150-450) K/mm3 MPV (7.5-11.0) fl Gran % (36.0-66.0) % Eos # (Auto) (0-0.5) Absolute Lymphs (auto) (1.0-4.6) Absolute Monos (auto) (0.0-1.3) Lymphocytes % (24.0-44.0) % Monocytes % (0.0-12.0) % Eosinophils % (0.00-5.0) % Basophils % (0.0-0.4) % Absolute Granulocytes (1.4-6.9) Basophils # (0-0.4) Sodium (137-145) mmol/L Potassium (3.5-5.1) mmol/L Chloride (98-107) mmol/L Carbon Dioxide (22-30) mmol/L Anion Gap (5-15) MEQ/L BUN (9-20) mg/dL Creatinine (0.66-1.25) mg/dL Estimated GFR ML/MIN Glucose (74-106) mg/dL Calcium (8.4-10.2) mg/dL Magnesium (1.6-2.3) mg/dL Total Bilirubin (0.2-1.3) mg/dL AST (17-59) U/L ALT (0-50) U/L Alkaline Phosphatase (38-126) U/L Troponin I 0.018 (0.000-0.034) ng/mL Serum Total Protein (6.3-8.2) g/dL Albumin (3.5-5.0) g/dL Urine Color YELLOW (YELLOW) Urine Appearance SLIGHTLY CLOUDY (CLEAR) Urine pH 7.0 (5-6) Ur Specific Tyler 1.015 (1.005-1.025) Urine Protein 100 (Negative) Urine Ketones NEGATIVE (NEGATIVE) Urine Blood NEGATIVE (0-5) Silviano/ul Urine Nitrite NEGATIVE (NEGATIVE) Urine Bilirubin NEGATIVE (NEGATIVE) Urine Urobilinogen NEGATIVE (0-1) mg/dL Ur Leukocyte Esterase NEGATIVE (NEGATIVE) Urine WBC (Auto) 0-2 (0-5) /HPF Urine RBC (Auto) 0-2 (0-2) /HPF U Hyaline Cast (Auto) 0-2 (0-2) /LPF U Epithel Cells (Auto) NONE (FEW) /HPF Urine Bacteria (Auto) NONE (NEGATIVE) /HPF Urine Mucus (Auto) SLIGHT (NEGATIVE) /HPF Urine Culture Reflexed NO (NO) Urine Glucose NEGATIVE (NEGATIVE) mg/dL Urine Opiates Level POSITIVE (NEGATIVE) Ur Methadone NEGATIVE (NEGATIVE) Urine Barbiturates NEGATIVE (NEGATIVE) Ur Phencyclidine (PCP) NEGATIVE (NEGATIVE) Urine Amphetamine NEGATIVE (NEGATIVE) U Benzodiazepine Level NEGATIVE (NEGATIVE) Urine Cocaine NEGATIVE (NEGATIVE) Urine Marijuana (THC) NEGATIVE (NEGATIVE) 09/09/20 09/09/20 Range/Units 23:00 23:00 WBC 10.9 H (4.0-10.5) K/mm3 RBC 4.32 (4.1-5.6) M/mm3 Hgb 12.9 (12.5-18.0) gm/dl Hct 40.2 L (42-50) % MCV 93.1 (78-100) fl MCH 29.9 (26-32) pg MCHC 32.1 (32-36) g/dl RDW 15.5 H (11.5-14.0) % Plt Count 311 (150-450) K/mm3 MPV 11.1 H (7.5-11.0) fl Gran % 71.7 H (36.0-66.0) % Eos # (Auto) 0.28 (0-0.5) Absolute Lymphs (auto) 2.00 (1.0-4.6) Absolute Monos (auto) 0.74 (0.0-1.3) Lymphocytes % 18.4 L (24.0-44.0) % Monocytes % 6.8 (0.0-12.0) % Eosinophils % 2.6 (0.00-5.0) % Basophils % 0.5 (0.0-0.4) % Absolute Granulocytes 7.80 H (1.4-6.9) Basophils # 0.05 (0-0.4) Sodium 139 (137-145) mmol/L Potassium 4.0 (3.5-5.1) mmol/L Chloride 105 (98-107) mmol/L Carbon Dioxide 25 (22-30) mmol/L Anion Gap 13.0 (5-15) MEQ/L BUN 17 (9-20) mg/dL Creatinine 0.96 (0.66-1.25) mg/dL Estimated GFR > 60.0 ML/MIN Glucose 126 H (74-106) mg/dL Calcium 9.9 (8.4-10.2) mg/dL Magnesium 2.0 (1.6-2.3) mg/dL Total Bilirubin 0.60 (0.2-1.3) mg/dL AST 16 L (17-59) U/L ALT 11 (0-50) U/L Alkaline Phosphatase 81 (38-126) U/L Troponin I (0.000-0.034) ng/mL Serum Total Protein 8.7 H (6.3-8.2) g/dL Albumin 4.7 (3.5-5.0) g/dL Urine Color (YELLOW) Urine Appearance (CLEAR) Urine pH (5-6) Ur Specific Tyler (1.005-1.025) Urine Protein (Negative) Urine Ketones (NEGATIVE) Urine Blood (0-5) Silviano/ul Urine Nitrite (NEGATIVE) Urine Bilirubin (NEGATIVE) Urine Urobilinogen (0-1) mg/dL Ur Leukocyte Esterase (NEGATIVE) Urine WBC (Auto) (0-5) /HPF Urine RBC (Auto) (0-2) /HPF U Hyaline Cast (Auto) (0-2) /LPF U Epithel Cells (Auto) (FEW) /HPF Urine Bacteria (Auto) (NEGATIVE) /HPF Urine Mucus (Auto) (NEGATIVE) /HPF Urine Culture Reflexed (NO) Urine Glucose (NEGATIVE) mg/dL Urine Opiates Level (NEGATIVE) Ur Methadone (NEGATIVE) Urine Barbiturates (NEGATIVE) Ur Phencyclidine (PCP) (NEGATIVE) Urine Amphetamine (NEGATIVE) U Benzodiazepine Level (NEGATIVE) Urine Cocaine (NEGATIVE) Urine Marijuana (THC) (NEGATIVE) - Progress Progress: improved Air Movement: good Progress Note: 09/10/20 05:48 Cardiac work-up. Hydralazine 10 mg IV. Also allowed to take his nighttime carvedilol dose. He also took his Eliquis and Lexapro. Patient appears very anxious and patient admits to anxiety. Blood pressure 168/85. Xanax 0.5 mg p.o. Blood pressure now 150 systolic and coming down. Patient feels comfortable going home. Will discharge. Blood Culture(s) Obtained: No Antibiotics given: No Counseled pt/family regarding: lab results, diagnosis, need for follow-up, rad results - Departure Departure Disposition: Home Clinical Impression: Hypertension, Anxiety Condition: Stable Critical Care Time: No Referrals: TY SCHAEFER [Primary Care Provider] - Instructions: Malignant Hypertension (DC) Additional Instructions: Monitor symptoms closely. Keep an eye on your blood pressure as well. Please check about 2-3 times a day but usually around the same time. Continue with your home medications and use the hydralazine as instructed. Follow-up with your PCP sooner than later. Perhaps he may have something short- term while the Qiroapro starts to work. Return to ER if worse.
[2020-09-09 23:35] LABS: Appearance SLIGHTLY CLOUDY (CLEAR); Bilirubin NEGATIVE (NEGATIVE); Blood NEGATIVE Ery/ul (0-5); Glucose NEGATIVE (NEGATIVE); Hyaline Casts 0-2 /LPF (0-2); Ketones NEGATIVE (NEGATIVE); Leukocyte Esterase NEGATIVE (NEGATIVE); Mucus SLIGHT /HPF (NEGATIVE); Nitrite NEGATIVE (NEGATIVE); Protein,Urine Dip 100 (Negative); RBC 0-2 /HPF (0-2); Specific Gravity 1.015 (1.005-1.025); Urobilinogen NEGATIVE mg/dL (0-1); WBC 0-2 /HPF (0-5)
[2020-09-09 23:39] LABS: ALBUMIN 4.7 g/dL (3.5-5.0); ALKALINE PHOSPHATASE 81 U/L (38-126); BLOOD UREA NITROGEN 17 mg/dL (9-20); CHLORIDE 105 mmol/L (98-107); Calcium 9.9 mg/dL (8.4-10.2); Carbon Dioxide 25 mmol/L (22-30); Creatinine 1 0.96 mg/dL (0.66-1.25); EST GLOMERULAR FILTRATION RATE > 60.0 ML/MIN; Glucose 126 mg/dL (74-106); SGOT/AST 16 U/L (17-59); SGPT/ALT 11 U/L (0-50); SODIUM 139 mmol/L (137-145); Total Protein 8.7 g/dL (6.3-8.2)
[2020-09-09] MEDS ORDERED: APRESOLINE 20 MG/ML INJ ONE (23:41)
[2020-09-09 23:44] LABS: Amphetamine,Urine NEGATIVE (NEGATIVE); Barbiturate,Urine NEGATIVE (NEGATIVE); Benzodiazepine,Urine NEGATIVE (NEGATIVE); Cocaine,Urine NEGATIVE (NEGATIVE); Methadone,Urine NEGATIVE (NEGATIVE); Opiate,Urine POSITIVE (NEGATIVE); PCP,Urine NEGATIVE (NEGATIVE); THC,Urine NEGATIVE (NEGATIVE)
[2020-09-10] MEDS ORDERED: xanAX 0.5 MG PO ONE (00:33)
[2020-09-10] MEDS ORDERED: xanAX 0.5 MG ONE (00:43)
[2020-09-10 01:01] VITALS: BP 154/84; PULSE 74
[2020-09-10 05:50] VITALS: O2SAT 98
--- NOTE | 2020-09-10 08:59 | XRAY ---
Indication: High blood pressure. History aortic dissection. Comparison: July 17, 2020. Portable chest remains clear. Heart is not enlarged with grossly stable CT proven [place] type B aortic dissection. Bony thorax intact again with sternotomy wires. No new/acute findings.
== END 2020-09-10 01:00 | disposition home or self-care (01) ==
LOC: ED 22:14
DX: I10 Essential (primary) hypertension (principal); R07.9 Chest pain, unspecified; F41.9 Anxiety disorder, unspecified; Z79.899 Other long term (current) drug therapy
CPT/HCPCS: 36000; 36415; 71045; 80053; 80307; 81001; 83735; 84484; 85025; 93005; 96374; 99284; J0360; A9270-GY

== ENCOUNTER 2021-06-08 22:45 | Emergency (ER) | payer OTHER ==
[2021-06-08] MEDS ORDERED: BABY ASPIRIN 81 MG CHEW PO ONE (22:56)
[2021-06-08 23:12] LABS: Absolute Neutrophil Ct (ANC) 5.26 (1.4-6.9); BASOPHIL % 0.4 % (0.0-0.4); Basophil (Absolute #) 0.04 (0-0.4); Eosinophil % 4.1 % (0.00-5.0); Eosinophil (Absolute #) 0.38 (0-0.5); Hematocrit 41.7 % (42-50); Hemoglobin 13.9 gm/dl (12.5-18.0); Lymphocyte (Absolute #) 2.82 (1.0-4.6); Lymphocytes % 30.2 % (24.0-44.0); Mean Cell Volume 101.2 fl (78-100); Mean Corpuscular Hemoglobin 33.7 pg (26-32); Mean Corpuscular Hgb Concent. 33.3 g/dl (32-36); Monocyte (Absolute #) 0.85 (0.0-1.3); Monocytes % 9.1 % (0.0-12.0); Neutrophil % 56.2 % (36.0-66.0); Platelet Count 247 K/mm3 (150-450); Red Blood Count 4.12 M/mm3 (4.1-5.6); Red Cell Distribution Width 12.8 % (11.5-14.0); White Blood Count 9.4 K/mm3 (4.0-10.5)
--- NOTE | 2021-06-08 23:20 | ERPHSYRPT ---
- History of Present Illness Time Seen by Provider: 06/08/21 22:53 Patient Subjective Stated Complaint: pt states, "I was sitting on the couch and coughed really hard and made my back pop. When I stood up, I felt a little dizzy and hr was faster than usual". Triage Nursing Assessment: pt coughed really hard which made his back pop and when he stood up off the couch, felt a little dizzy and HR was 20-25 beats faster than usual. HR 70-72 b/min upon arrival, pt states, "it's usually 55-60 b/min. Pt was afraid it was his af-fib. Pt has hx of aortic dissection and a- fib. Physician History: 41 years old male with history of aortic dissection status post surgical repair, paroxysmal atrial fibrillation, hypertension presented in the ER with chief complaint of palpitations sudden onset after he coughed really hard and stood up felt lightheaded with his heart rate and 80s. Patient reported his usual heart rate is in 50s. When he walked to his car heart rate was in 90s and blood pressure in 150s. Patient current blood pressure is in 120s and heart rate in 70s. Denies any chest pain or palpitations currently. Denies any chest pain tightness or pressure earlier but palpitations. No shortness of breath. Denies any sick contact. Timing/Duration: hour(s) (1), sudden, improved Activities at Onset: rest Severity of Pain-Max: none Severity of Pain-Current: none Associated Symptoms: cough Nitro Today/Relief: no nitro taken today Aspirin Treatment Today: 81 mg x 1 Allergies/Adverse Reactions: No Known Drug Allergies Allergy (Verified 06/08/21 22:58) Home Medications: Atorvastatin Calcium 40 mg PO DAILY 07/17/20 [History] Losartan Potassium 100 mg PO DAILY 07/17/20 [History] carvediloL [Carvedilol] 25 mg PO BID 07/17/20 [History] Escitalopram Oxalate 10 mg PO DAILY 09/09/20 [History] Aspirin 81 gm Chew [Baby Aspirin 81 mg Chew] 81 mg PO DAILY 06/08/21 [History] Sacubitril/Valsartan [Entresto 24 mg-26 mg Tablet] 1 tab PO BID 06/08/21 [History] Hx Tetanus, Diphtheria Vaccination/Date Given: Yes Hx Influenza Vaccination/Date Given: Yes Hx Pneumococcal Vaccination/Date Given: No Immunizations Up to Date: Yes Travel Risk - International Travel Have you traveled outside of the country in past 3 weeks: No - Coronavirus Screening Are you exhibiting any of the following symptoms?: No Close contact with a COVID-19 positive Pt in past 14-21 Days: No - Vaccine Status Have you recieved a Covid-19 vaccination: No - Review of Systems Constitutional: No Symptoms Eyes: No Symptoms Ears, Nose, & Throat: No Symptoms Respiratory: No Symptoms Cardiac: Palpitations Abdominal/Gastrointestinal: No Symptoms Genitourinary Symptoms: No Symptoms Musculoskeletal: No Symptoms Skin: No Symptoms Neurological: No Symptoms Psychological: No Symptoms Endocrine: No Symptoms Hematologic/Lymphatic: No Symptoms Immunological/Allergic: No Symptoms - Past Medical History Pertinent Past Medical History: Yes Neurological History: No Pertinent History ENT History: No Pertinent History Cardiac History: Aneurysm, Congestive Heart Failure, Hypertension, Other Respiratory History: No Pertinent History Endocrine Medical History: No Pertinent History Musculoskeletal History: No Pertinent History GI Medical History: No Pertinent History History: No Pertinent History Psycho-Social History: Anxiety, Depression Male Reproductive Disorders: No Pertinent History Other Medical History: aortic dissection may 2020 - Past Surgical History Past Surgical History: Yes Neuro Surgical History: No Pertinent History Cardiac: Vascular Surgery Respiratory: No Pertinent History Gastrointestinal: No Pertinent History Genitourinary: No Pertinent History Musculoskeletal: No Pertinent History, Orthopedic Surgery Male Surgical History: No Pertinent History Other Surgical History: L shoulder, aortic dissection in May, - Social History Smoking Status: Current every day smoker How long have you smoked: 24 yrs Exposure to second hand smoke: No Drug Use: marijuana Patient Lives Alone: No Significant Family History: no pertinent family hx - Nursing Vital Signs Nursing Vital Signs: Initial Vital Signs Temperature 98.6 F 06/08/21 22:47 Pulse Rate 71 06/08/21 22:47 Respiratory Rate 18 06/08/21 22:47 Blood Pressure 151/71 06/08/21 22:47 O2 Sat by Pulse Oximetry 96 06/08/21 22:47 Pain Scale Pain Intensity 0 - Physical Exam General Appearance: no apparent distress, alert, anxiety Eye Exam: PERRL/EOMI, eyes nml inspection Ears, Nose, Throat Exam: normal ENT inspection, TMs normal, pharynx normal, moist mucous membranes Neck Exam: normal inspection, supple, full range of motion Respiratory Exam: normal breath sounds, lungs clear Cardiovascular Exam: regular rate/rhythm, normal heart sounds Gastrointestinal/Abdomen Exam: soft, normal bowel sounds, No tenderness Back Exam: normal inspection, normal range of motion Extremity Exam: normal inspection, normal range of motion Neurologic Exam: alert, oriented x 3, cooperative, medical staff physician II-XII nml as tested Skin Exam: normal color SpO2 Interpretation: normal SpO2: 98 O2 Delivery: Room Air - Course EKG Interpreted by Me: RATE (68), Sinus Rhythm, NORMAL AXIS, NORMAL INTERVALS, Q-wave (Inferior), Non-specific ST Changes, Other (Nonspecific T wave changes) Ordered Tests: Medication Summary Discontinued Medications Generic Name Dose Route Start Last Admin Trade Name Freq PRN Reason Stop Dose Admin Aspirin 324 mg 06/08/21 22:56 06/08/21 23:14 Baby Aspirin 81 Mg Chew PO 06/08/21 22:57 324 mg STAT ONE Administration Lab/Rad Data: Laboratory Result Diagrams 06/08/21 23:08 06/08/21 23:08 Laboratory Results 06/09/21 06/09/21 06/08/21 Range/Units 02:02 00:01 23:08 WBC (4.0-10.5) K/mm3 RBC (4.1-5.6) M/mm3 Hgb (12.5-18.0) gm/dl Hct (42-50) % MCV (78-100) fl MCH (26-32) pg MCHC (32-36) g/dl RDW (11.5-14.0) % Plt Count (150-450) K/mm3 MPV (7.5-11.0) fl Gran % (36.0-66.0) % Eos # (Auto) (0-0.5) Absolute Lymphs (auto) (1.0-4.6) Absolute Monos (auto) (0.0-1.3) Lymphocytes % (24.0-44.0) % Monocytes % (0.0-12.0) % Eosinophils % (0.00-5.0) % Basophils % (0.0-0.4) % Absolute Granulocytes (1.4-6.9) Basophils # (0-0.4) D-Dimer 1241 H* (215-500) ng/mL Sodium (137-145) mmol/L Potassium (3.5-5.1) mmol/L Chloride (98-107) mmol/L Carbon Dioxide (22-30) mmol/L Anion Gap (5-15) MEQ/L BUN (9-20) mg/dL Creatinine (0.66-1.25) mg/dL Estimated GFR ML/MIN Glucose (74-106) mg/dL Calcium (8.4-10.2) mg/dL Total Bilirubin (0.2-1.3) mg/dL AST (17-59) U/L ALT (0-50) U/L Alkaline Phosphatase (38-126) U/L Troponin I < 0.012 < 0.012 (0.000-0.034) ng/mL NT-Pro-B Natriuret Pep (0-450) pg/mL Serum Total Protein (6.3-8.2) g/dL Albumin (3.5-5.0) g/dL 06/08/21 06/08/21 Range/Units 23:08 23:08 WBC 9.4 (4.0-10.5) K/mm3 RBC 4.12 (4.1-5.6) M/mm3 Hgb 13.9 (12.5-18.0) gm/dl Hct 41.7 L (42-50) % MCV 101.2 H (78-100) fl MCH 33.7 H (26-32) pg MCHC 33.3 (32-36) g/dl RDW 12.8 (11.5-14.0) % Plt Count 247 (150-450) K/mm3 MPV 10.0 (7.5-11.0) fl Gran % 56.2 (36.0-66.0) % Eos # (Auto) 0.38 (0-0.5) Absolute Lymphs (auto) 2.82 (1.0-4.6) Absolute Monos (auto) 0.85 (0.0-1.3) Lymphocytes % 30.2 (24.0-44.0) % Monocytes % 9.1 (0.0-12.0) % Eosinophils % 4.1 (0.00-5.0) % Basophils % 0.4 (0.0-0.4) % Absolute Granulocytes 5.26 (1.4-6.9) Basophils # 0.04 (0-0.4) D-Dimer (215-500) ng/mL Sodium 142 (137-145) mmol/L Potassium 3.7 (3.5-5.1) mmol/L Chloride 105 (98-107) mmol/L Carbon Dioxide 26 (22-30) mmol/L Anion Gap 15.1 H (5-15) MEQ/L BUN 20 (9-20) mg/dL Creatinine 1.23 (0.66-1.25) mg/dL Estimated GFR > 60.0 ML/MIN Glucose 119 H (74-106) mg/dL Calcium 9.5 (8.4-10.2) mg/dL Total Bilirubin 0.30 (0.2-1.3) mg/dL AST 22 (17-59) U/L ALT 15 (0-50) U/L Alkaline Phosphatase 71 (38-126) U/L Troponin I (0.000-0.034) ng/mL NT-Pro-B Natriuret Pep 200 (0-450) pg/mL Serum Total Protein 7.8 (6.3-8.2) g/dL Albumin 4.6 (3.5-5.0) g/dL - Progress Progress: improved, re-examined Air Movement: good Progress Note: 41 years old is evaluated for sudden onset palpitations. EKG did not show any acute ischemic changes and negative troponins x2. I have obtained CTA as well which is negative because of patient history of dissection with similar symptoms in the past. Patient is feeling better on reevaluation. Recommended outpatient primary care and cardiology follow-up. Discussed signs symptoms of worsening needing return to ER which he seems understanding. Stable for discharge. Counseled pt/family regarding: lab results, diagnosis, need for follow-up, rad results - Departure Departure Disposition: Home Clinical Impression: Palpitations Condition: Stable Critical Care Time: No Referrals: TY SCHAEFER [Primary Care Provider] - (1-2 days for reevaluation.) Instructions: Arrhythmias (DC), Palpitations (DC) Additional Instructions: Call your cotton candy maker in the morning for reevaluation. Follow-up with primary care physician next 24 to 48 hours. Return to ER for for worsening palpitations or if develop shortness of breath/chest pain etc. Continue with your current medications.
[2021-06-08 23:40] LABS: ALBUMIN 4.6 g/dL (3.5-5.0); ALKALINE PHOSPHATASE 71 U/L (38-126); ANION GAP 15.1 MEQ/L (5-15); BLOOD UREA NITROGEN 20 mg/dL (9-20); CHLORIDE 105 mmol/L (98-107); Calcium 9.5 mg/dL (8.4-10.2); Carbon Dioxide 26 mmol/L (22-30); Creatinine 1 1.23 mg/dL (0.66-1.25); EST GLOMERULAR FILTRATION RATE > 60.0 ML/MIN; Glucose 119 mg/dL (74-106); NT PRO BNP 200 pg/mL (0-450); Potassium 3.7 mmol/L (3.5-5.1); SGOT/AST 22 U/L (17-59); SGPT/ALT 15 U/L (0-50); SODIUM 142 mmol/L (137-145); Total Protein 7.8 g/dL (6.3-8.2)
[2021-06-09 02:40] VITALS: BP 171/86; PULSE 72
--- NOTE | 2021-06-09 08:57 | XRAY ---
Indication: Heart palpitations. Elevated d-dimer. History heart failure. Multiple contiguous axial images obtained through the chest using 80 cc Isovue 370 contrast and PE protocol. Comparison: August 30, 2020. There is good opacification of the pulmonary arteries to include the lobar and segmental branches. However mild respiration artifact limits evaluation of the more distal lobar and segmental branches. No obvious central pulmonary embolus. Heart is borderline enlarged. Aorta again demonstrates a grossly stable aortic dissection beginning at the level of the arch just distal to the origin of the left subclavian artery extending into the abdominal aorta not completely visualized. Grossly stable large false lumen. Maximum diameter at the level of the arch and proximal descending aorta remains 3.8 cm. Mid descending thoracic aorta is 3.4 cm. Distal descending thoracic aorta is 3.3 cm. No free fluid or evidence for active hemorrhage. Stable small precarinal lymph nodes. No pathologic mediastinal/hilar lymphadenopathy. Lungs inflated and remain clear. Bony thorax intact again with mild degenerative changes throughout the spine and sternotomy wires. Limited upper abdomen demonstrates contracted gallbladder. Impression: 1. Respiration artifact limits evaluation for pulmonary embolus. No obvious central pulmonary embolus. 2. Grossly stable thoracoabdominal aortic dissection. 3. No new or acute cardiopulmonary abnormalities. Comment: Preliminary interpretation made by [facility]. No critical discrepancy.
--- NOTE | 2021-06-09 08:59 | XRAY ---
Indication: Palpitations. History aortic dissection. Comparison: September 09, 2020. Portable chest remains clear. Heart borderline enlarged with grossly stable CT proven [place] type B aortic dissection. Bony thorax intact again with sternotomy wires. No new/acute findings.
[2021-06-13 23:00] VITALS: O2SAT 98
== END 2021-06-09 02:41 | disposition home or self-care (01) ==
LOC: ED 22:45
DX: R00.2 Palpitations (principal); I48.91 Unspecified atrial fibrillation; I10 Essential (primary) hypertension; Z79.899 Other long term (current) drug therapy; Z98.890 Other specified postprocedural states
CPT/HCPCS: 36000; 36415; 71045; 71260; 80053; 83880; 84484; 85025; 85379; 93005; 93041; 99284; A9270-GY

== ENCOUNTER 2023-04-15 15:21 | Observation (INO) | payer OTHER ==
[2023-04-15] MEDS ORDERED: BUMEX 1 MG IV ONE (15:41)
[2023-04-15 15:55] LABS: Absolute Neutrophil Ct (ANC) 5.24 x10^3/uL (1.4-6.9); Basophil (Absolute #) 0.08 x10^3/uL (0-0.4); Eosinophil % 4.6 % (0.00-5.0); Eosinophil (Absolute #) 0.37 x10^3/uL (0-0.5); Hematocrit 22.3 % (42-50); IMMATURE GRAN # 0.05 x10^3u/L (0.00-0.03); IMMATURE GRAN % 0.6 % (0.00-0.4); Lymphocyte (Absolute #) 1.31 x10^3/uL (1.0-4.6); Lymphocytes % 16.1 % (24.0-44.0); Mean Cell Volume 98.2 fL (78-100); Mean Corpuscular Hemoglobin 29.5 pg (26-32); Mean Platelet Volume 8.9 fL (7.5-11.0); Monocyte (Absolute #) 1.07 x10^3/uL (0.0-1.3); Monocytes % 13.2 % (0.0-12.0); Neutrophil % 64.5 % (36.0-66.0); Platelet Count 447 x10^3/uL (150-450); Red Blood Count 2.27 x10^6/uL (4.1-5.6); Red Cell Distribution Width 15.3 % (11.5-14.0); White Blood Count 8.1 x10^3/uL (4.0-10.5)
[2023-04-15] MEDS ORDERED: BUMEX 1 MG ONE (16:07)
[2023-04-15 16:10] LABS: INR 1.28 (0.8-3.0); PROTIME 13.7 SECONDS (9.4-12.5); PTT 34.9 SECONDS (25.1-36.5)
[2023-04-15 16:11] LABS: Hemoglobin 6.7 g/dL (12.5-18.0)
--- NOTE | 2023-04-15 16:15 | ERPHSYRPT ---
- History of Present Illness Time Seen by Provider: 04/15/23 16:14 Source: patient, family Exam Limitations: no limitations Patient Subjective Stated Complaint: C/O heart palpitations that started 90 minutes to 2 hours prior to arrival in ER. States no physical exertion; p alpitations started at rest. Triage Nursing Assessment: Patient ambulated back to ER; refused W/C. Slight SOB noted with exertion with quick rebound once lying on bed in ER. He is alert and oriented. Diaphoretic and pale. Tight, swollen BLE noted. No cough. Surgical incision to chest noted; well-approximated without s/s of infection. Physician History: C/O heart palpitations that started 90 minutes to 2 hours prior to arrival in ER. States no physical exertion; palpitations started at rest. Patient is 42-year-old male with significant past medical history of recent open heart surgery for valvular replacement. Surgery was complicated by pulmonary embolism. Patient was discharged home 5 days ago. He was doing okay wrist suddenly he started having a swelling all over the body with palpitation and dizziness so he came to the emergency room for further evaluation. Timing/Duration: today Severity: mild Associated Symptoms: other (generalised swelling) Allergies/Adverse Reactions: No Known Drug Allergies Allergy (Verified 04/15/23 15:27) Home Medications: Atorvastatin Calcium 40 mg PO DAILY 07/17/20 [History] carvediloL [Carvedilol] 6.25 mg PO BID 07/17/20 [History] Escitalopram Oxalate 10 mg PO DAILY 09/09/20 [History] Aspirin 81 gm Chew [Baby Aspirin 81 mg Chew] 81 mg PO DAILY 06/08/21 [Hi story] Oxycodone HCl 1 tab PO Q4H PRN PRN 04/15/23 [History] PANTOPRAZOLE 40 mg Tablet [Protonix 40MG Tablet] 1 tab PO DAILY 04/15/23 [History] Warfarin Sodium 3 mg [Coumadin 3 MG] 1 tab PO DAILY 04/15/23 [History] Hx Tetanus, Diphtheria Vaccination/Date Given: Yes Hx Influenza Vaccination/Date Given: Yes Hx Pneumococcal Vaccination/Date Given: No Immunizations Up to Date: Yes Travel Risk - International Travel Have you traveled outside of the country in past 3 weeks: No - Coronavirus Screening Are you exhibiting any of the following symptoms?: No Close contact with a COVID-19 positive Pt in past 14-21 Days: No - Vaccine Status Have you recieved a Covid-19 vaccination: No - Review of Systems Constitutional: Weakness, No Fever, No Chills Eyes: No Symptoms Ears, Nose, & Throat: No Symptoms Respiratory: Dyspnea on Exertion (CARBONE), No Cough, No Dyspnea Cardiac: Edema, Palpitations, Orthopnea, No Chest Pain, No Syncope Abdominal/Gastrointestinal: No Abdominal Pain, No Nausea, No Vomiting, No Diarrhea Genitourinary Symptoms: No Dysuria Musculoskeletal: No Back Pain, No Neck Pain Skin: No Rash Neurological: No Dizziness, No Focal Weakness, No Sensory Changes Psychological: No Symptoms Endocrine: No Symptoms All Other Systems: Reviewed and Negative - Past Medical History Pertinent Past Medical History: Yes Neurological History: No Pertinent History ENT History: No Pertinent History Cardiac History: Aneurysm, Congestive Heart Failure, High Cholesterol, H ypertension, Other Respiratory History: No Pertinent History Endocrine Medical History: No Pertinent History Musculoskeletal History: No Pertinent History GI Medical History: No Pertinent History History: No Pertinent History Psycho-Social History: Anxiety, Depression Male Reproductive Disorders: No Pertinent History Other Medical History: aortic dissection may 2020, a-fib - Past Surgical History Past Surgical History: Yes Neuro Surgical History: No Pertinent History Cardiac: Vascular Surgery Respiratory: No Pertinent History Gastrointestinal: No Pertinent History Genitourinary: No Pertinent History Musculoskeletal: No Pertinent History, Orthopedic Surgery Male Surgical History: No Pertinent History Other Surgical History: L shoulder, aortic dissection in May,, valve replacement aneurysm repair at [facility] 03/30/23 at [facility] (Dr. Allne) - Social History Smoking Status: Current every day smoker How long have you smoked: 24 yrs Exposure to second hand smoke: No Drug Use: marijuana Patient Lives Alone: No Significant Family History: no pertinent family hx - Nursing Vital Signs Nursing Vital Signs: Initial Vital Signs Temperature 98.6 F 04/15/23 15:32 Pulse Rate 102 H 04/15/23 15:32 Respiratory Rate 12 04/15/23 15:32 Blood Pressure 167/89 04/15/23 15:32 O2 Sat by Pulse Oximetry 97 04/15/23 15:32 Pain Scale Pain Intensity 0 - Physical Exam General Appearance: mild distress, alert Eye Exam: PERRL/EOMI, eyes nml inspection Ears, Nose, Throat Exam: normal ENT inspection, TMs normal, pharynx normal, moist mucous membranes Neck Exam: normal inspection, non-tender, supple, full range of motion Respiratory Exam: accessory muscle use, crackles/rales, No respiratory distress Cardiovascular Exam: regular rate/rhythm, normal heart sounds, normal peripheral pulses, edema Gastrointestinal/Abdomen Exam: soft, normal bowel sounds, No tenderness, No mass Back Exam: normal inspection, normal range of motion, No CVA tenderness, No vertebral tenderness Extremity Exam: normal inspection, normal range of motion, pelvis stable Neurologic Exam: alert, oriented x 3, cooperative, normal mood/affect, nml cerebellar function, nml station & gait, sensation nml, No motor deficits Skin Exam: normal color, warm, dry, No rash Lymphatic Exam: No adenopathy SpO2: 97 - Course Nursing assessment & vital signs reviewed: Yes EKG Interpreted by Me: Sinus Rhythm - Radiology Exams Chest X-ray Interpretation: Reviewed by me (CHF changes) Ordered Tests: Active Orders 24 hr Category Date Time Status EKG-ER Only STAT Care 04/15/23 15:41 Active Oxygen-ED Only Nasal Cannula 2 lpm Care 04/15/23 15:41 Active CHEST 2 VIEWS (PA AND LAT) Stat Exams 04/15/23 15:42 Taken CBC W DIFF Stat Lab 04/15/23 15:46 Completed CMP Stat Lab 04/15/23 15:46 Completed NT PRO BNPII Stat Lab 04/15/23 15:46 Completed PROTIME WITH INR Stat Lab 04/15/23 15:46 Completed PTT Stat Lab 04/15/23 15:46 Completed TROPONIN Q4H Lab 04/15/23 15:46 Completed TROPONIN Q4H Lab 04/15/23 19:45 Ordered TROPONIN Q4H Lab 04/15/23 23:45 Ordered Medication Summary Generic Name Dose Route Start Last Admin Trade Name Freq PRN Reason Stop Dose Admin Sodium Chloride 1,000 mls @ 50 mls/hr 04/15/23 15:45 04/15/23 16:16 Sodium Chloride 0.9% 1000 Ml IV 05/15/23 15:44 50 mls/hr .Q20H SAKSHI Administration Discontinued Medications Generic Name Dose Route Start Last Admin Trade Name Freq PRN Reason Stop Dose Admin Bumetanide 1 mg 04/15/23 15:41 04/15/23 16:18 Bumetanide 0.25 Mg/Ml 4ml Vial IV 04/15/23 15:42 1 mg STAT ONE Administration Bumetanide Confirm 04/15/23 16:07 Bumetanide 0.25 Mg/Ml 4ml Vial Administered 04/15/23 16:08 Dose 1 mg .ROUTE .STK-MED ONE Lab/Rad Data: Laboratory Result Diagrams 04/15/23 15:46 04/15/23 15:46 Laboratory Results 04/15/23 04/15/23 04/15/23 Range/Units 15:46 15:46 15:46 WBC (4.0-10.5) x10^3/uL RBC (4.1-5.6) x10^6/uL Hgb (12.5-18.0) g/dL Hct (42-50) % MCV (78-100) fL MCH (26-32) pg MCHC (32-36) g/dL RDW (11.5-14.0) % Plt Count (150-450) x10^3/uL MPV (7.5-11.0) fL Gran % (36.0-66.0) % Immature Gran % (Auto) (0.00-0.4) % Nucleat RBC Rel Count (0.00-0.1) % Eos # (Auto) (0-0.5) x10^3/uL Immature Gran # (Auto) (0.00-0.03) x10^3u/L Absolute Lymphs (auto) (1.0-4.6) x10^3/uL Absolute Monos (auto) (0.0-1.3) x10^3/uL Absolute Nucleated RBC (0.00-0.01) x10^3u/L Lymphocytes % (24.0-44.0) % Monocytes % (0.0-12.0) % Eosinophils % (0.00-5.0) % Basophils % (0.0-0.4) % Absolute Granulocytes (1.4-6.9) x10^3/uL Basophils # (0-0.4) x10^3/uL PT 13.7 H (9.4-12.5) SECONDS INR 1.28 (0.8-3.0) APTT 34.9 (25.1-36.5) SECONDS Sodium (137-145) mmol/L Potassium (3.5-5.1) mmol/L Chloride (98-107) mmol/L Carbon Dioxide (22-30) mmol/L Anion Gap (5-15) MEQ/L BUN (9-20) mg/dL Creatinine (0.66-1.25) mg/dL Estimated GFR ML/MIN Glucose (74-106) mg/dL Calcium (8.4-10.2) mg/dL Total Bilirubin (0.2-1.3) mg/dL AST (17-59) U/L ALT (0-50) U/L Alkaline Phosphatase (38-126) U/L Troponin I < 0.012 (0.000-0.034) ng/mL NT-Pro-B Natriuret Pep 1750 (<300) pg/mL Serum Total Protein (6.3-8.2) g/dL Albumin (3.5-5.0) g/dL 04/15/23 04/15/23 Range/Units 15:46 15:46 WBC 8.1 (4.0-10.5) x10^3/uL RBC 2.27 L (4.1-5.6) x10^6/uL Hgb 6.7 L* (12.5-18.0) g/dL Hct 22.3 L (42-50) % MCV 98.2 (78-100) fL MCH 29.5 (26-32) pg MCHC 30.0 L (32-36) g/dL RDW 15.3 H (11.5-14.0) % Plt Count 447 (150-450) x10^3/uL MPV 8.9 (7.5-11.0) fL Gran % 64.5 (36.0-66.0) % Immature Gran % (Auto) 0.6 H (0.00-0.4) % Nucleat RBC Rel Count 0.0 (0.00-0.1) % Eos # (Auto) 0.37 (0-0.5) x10^3/uL Immature Gran # (Auto) 0.05 H (0.00-0.03) x10^3u/L Absolute Lymphs (auto) 1.31 (1.0-4.6) x10^3/uL Absolute Monos (auto) 1.07 (0.0-1.3) x10^3/uL Absolute Nucleated RBC 0.00 (0.00-0.01) x10^3u/L Lymphocytes % 16.1 L (24.0-44.0) % Monocytes % 13.2 H (0.0-12.0) % Eosinophils % 4.6 (0.00-5.0) % Basophils % 1.0 (0.0-0.4) % Absolute Granulocytes 5.24 (1.4-6.9) x10^3/uL Basophils # 0.08 (0-0.4) x10^3/uL PT (9.4-12.5) SECONDS INR (0.8-3.0) APTT (25.1-36.5) SECONDS Sodium 139 (137-145) mmol/L Potassium 4.5 (3.5-5.1) mmol/L Chloride 103 (98-107) mmol/L Carbon Dioxide 28 (22-30) mmol/L Anion Gap 12.8 (5-15) MEQ/L BUN 10 (9-20) mg/dL Creatinine 0.76 (0.66-1.25) mg/dL Estimated GFR > 60.0 ML/MIN Glucose 109 H (74-106) mg/dL Calcium 8.7 (8.4-10.2) mg/dL Total Bilirubin 0.50 (0.2-1.3) mg/dL AST 20 (17-59) U/L ALT 21 (0-50) U/L Alkaline Phosphatase 88 (38-126) U/L Troponin I (0.000-0.034) ng/mL NT-Pro-B Natriuret Pep (<300) pg/mL Serum Total Protein 7.2 (6.3-8.2) g/dL Albumin 3.4 L (3.5-5.0) g/dL - Progress Progress: unchanged Discussed with : Other (Hospitalist) Will see patient in: hospital (observation) Counseled pt/family regarding: lab results, diagnosis, need for follow-up, rad results Medical Desision Making - Independent Historian Additional History obtained from: Spouse - Discussion of managment Reviewed:: Test results, Need for additional workup Agreed on:: Treatment plan, decision to admit, place in obs - Diagnostic Testing Diagnostic test were ordered, analyzed, and reviewed by me: Yes Radiological Interpretation: Reviewed by me - Risk of complications The pt has a high risk of morbidity or mortality based on: Drug therapy requiring intensive monitoring for toxicity - Departure Departure Disposition: Observation Clinical Impression: Severe anemia, Palpitations Condition: Fair Critical Care Time: Yes Critical Care Time(excluding separately billable procedures): Critical 30-74 mins Referrals: TY SCHAEFER [Primary Care Provider] - Follow up/PCP as directed
[2023-04-15 16:16] LABS: ALBUMIN 3.4 g/dL (3.5-5.0); ALKALINE PHOSPHATASE 88 U/L (38-126); ANION GAP 12.8 MEQ/L (5-15); BLOOD UREA NITROGEN 10 mg/dL (9-20); CHLORIDE 103 mmol/L (98-107); Calcium 8.7 mg/dL (8.4-10.2); Carbon Dioxide 28 mmol/L (22-30); Creatinine 1 0.76 mg/dL (0.66-1.25); EST GLOMERULAR FILTRATION RATE > 60.0 ML/MIN; Glucose 109 mg/dL (74-106); Potassium 4.5 mmol/L (3.5-5.1); SGOT/AST 20 U/L (17-59); SGPT/ALT 21 U/L (0-50); SODIUM 139 mmol/L (137-145); Total Protein 7.2 g/dL (6.3-8.2)
[2023-04-15] MEDS: Sodium Chloride 0.9% 1000 ML 1,000 ML IV SCH (16:16)
[2023-04-15 18:39] LABS: ABO TYPING O; Antibody Screen NEGATIVE (NEGATIVE); RH TYPING POSITIVE
[2023-04-15 18:43] LABS: CROSS MATCH (PRBC) COMPATIBLE (COMPATIBLE)
--- NOTE | 2023-04-15 18:58 | PCM.HP ---
History of Present Illness - Chief Complaint Chief Complaint: severe anemia Date: 04/15/23 History of Present Illness: is a 42 year old male who presented to the ED with approximately 20 seconds of palpitations. During this episode, he did not have any chest pain, dizziness or syncope. He recently had open heart surgery for valvular replacement, complicated by pulmonary embolism (he is on coumadin), with recent discharge 5 days ago. During the workup in the ED, the patient was noted to have significant anemia. He has not noted any hematemesis, hematochezia, or melena. No dyspnea is reported. The patient was seen and examined via telemedicine. The entirety of this encounter was performed via telemedicine. The patient consented to this telemedicine encounter. - Review of Systems Constitutional: No Symptoms Eyes: No Symptoms Ears, Nose, & Throat: No Symptoms Respiratory: No Symptoms Cardiac: Palpitations Abdominal/Gastrointestinal: No Symptoms Genitourinary Symptoms: No Symptoms Musculoskeletal: No Symptoms Skin: No Symptoms Neurological: No Symptoms Psychological: No Symptoms Endocrine: No Symptoms Hematologic/Lymphatic: No Symptoms Immunological/Allergic: No Symptoms Medications & Allergies Home Medications: Home Medication List Atorvastatin Calcium 40 mg PO DAILY 07/17/20 [History Confirmed 04/15/23] carvediloL [Carvedilol] 6.25 mg PO BID 07/17/20 [History Confirmed 04/15/23] Escitalopram Oxalate 10 mg PO DAILY 09/09/20 [History Confirmed 04/15/23] Aspirin 81 gm Chew [Baby Aspirin 81 mg Chew] 81 mg PO DAILY 06/08/21 [History Confirmed 04/15/23] Oxycodone HCl 1 tab PO Q4H PRN PRN 04/15/23 [History Confirmed 04/15/23] PANTOPRAZOLE 40 mg Tablet [Protonix 40MG Tablet] 1 tab PO DAILY 04/15/23 [History Confirmed 04/15/23] Warfarin Sodium 3 mg [Coumadin 3 MG] 1 tab PO DAILY 04/15/23 [History Confirmed 04/15/23] Allergies/Adverse Reactions: Allergies Allergy/AdvReac Type Severity Reaction Status Date / Time No Known Drug Allergies Allergy Verified 04/15/23 15:27 - Past Medical History Past Medical History: Yes Neurological History: No Pertinent History ENT History: No Pertinent History Cardiac History: Aneurysm, Congestive Heart Failure, High Cholesterol, Hypertension, Other Respiratory History: No Pertinent History Endocrine Medical History: No Pertinent History Musculoskelatal History: No Pertinent History GI Medical History: No Pertinent History History: No Pertinent History Pyscho-Social History: Anxiety, Depression Male Reproductive Disorders: No Pertinent History Comment: aortic dissection may 2020, a-fib - Past Surgical History Past Surgical History: Yes Neuro Surgical History: No Pertinent History Cardiac History: Vascular Surgery Respiratory Surgery: No Pertinent History GI Surgical History: No Pertinent History Genitourinary Surgical Hx: No Pertinent History Musculskeletal Surgical Hx: No Pertinent History, Orthopedic Surgery Male Surgical History: No Pertinent History Other Surgical History: L shoulder, aortic dissection in May,, valve replacement aneurysm repair at [facility] [place] 03/30/23 at [facility] (Dr. Allen) - Social History Smoking Status: Current every day smoker How long have you smoked: 24 yrs Exposure to second hand smoke: No Alcohol: Rarely Drug Use: marijuana Significant Family History: no pertinent family hx - Physical Exam Vital Signs: Vital Signs - 24 hr Temp Pulse Resp BP BP Pulse Ox 04/15/23 17:30 110 H 21 147/80 97 04/15/23 17:00 105 H 13 146/89 96 04/15/23 16:40 97 04/15/23 16:30 101 H 20 138/87 97 04/15/23 16:13 92 H 9 L 123/73 97 04/15/23 16:01 95 H 15 118/80 04/15/23 15:32 98.6 F 102 H 12 167/89 97 General Appearance: no apparent distress, alert Neurologic Exam: alert, oriented x 3, cooperative, wealth management consultant II-XII nml as tested, normal mood/affect, nml cerebellar function Eye Exam: PERRL/EOMI, eyes nml inspection Ears, Nose, Throat Exam: normal ENT inspection Neck Exam: normal inspection, non-tender, supple, full range of motion Respiratory Exam: normal breath sounds, lungs clear Cardiovascular Exam: regular rate/rhythm, edema, other (click auscultated) Gastrointestinal/Abdomen Exam: soft, normal bowel sounds Extremity Exam: swelling Skin Exam: normal color Results - Labs Lab/Micro Results: Lab Results-Last 24 Hours 04/15/23 04/15/23 04/15/23 Range/Units 15:45 15:46 15:46 WBC 8.1 (4.0-10.5) x10^3/uL RBC 2.27 L (4.1-5.6) x10^6/uL Hgb 6.7 L* (12.5-18.0) g/dL Hct 22.3 L (42-50) % MCV 98.2 (78-100) fL MCH 29.5 (26-32) pg MCHC 30.0 L (32-36) g/dL RDW 15.3 H (11.5-14.0) % Plt Count 447 (150-450) x10^3/uL MPV 8.9 (7.5-11.0) fL Gran % 64.5 (36.0-66.0) % Immature Gran % (Auto) 0.6 H (0.00-0.4) % Nucleat RBC Rel Count 0.0 (0.00-0.1) % Eos # (Auto) 0.37 (0-0.5) x10^3/uL Immature Gran # (Auto) 0.05 H (0.00-0.03) x10^3u/L Absolute Lymphs (auto) 1.31 (1.0-4.6) x10^3/uL Absolute Monos (auto) 1.07 (0.0-1.3) x10^3/uL Absolute Nucleated RBC 0.00 (0.00-0.01) x10^3u/L Lymphocytes % 16.1 L (24.0-44.0) % Monocytes % 13.2 H (0.0-12.0) % Eosinophils % 4.6 (0.00-5.0) % Basophils % 1.0 (0.0-0.4) % Absolute Granulocytes 5.24 (1.4-6.9) x10^3/uL Basophils # 0.08 (0-0.4) x10^3/uL PT (9.4-12.5) SECONDS INR (0.8-3.0) APTT (25.1-36.5) SECONDS Sodium 139 (137-145) mmol/L Potassium 4.5 (3.5-5.1) mmol/L Chloride 103 (98-107) mmol/L Carbon Dioxide 28 (22-30) mmol/L Anion Gap 12.8 (5-15) MEQ/L BUN 10 (9-20) mg/dL Creatinine 0.76 (0.66-1.25) mg/dL Estimated GFR > 60.0 ML/MIN Glucose 109 H (74-106) mg/dL Calcium 8.7 (8.4-10.2) mg/dL Total Bilirubin 0.50 (0.2-1.3) mg/dL AST 20 (17-59) U/L ALT 21 (0-50) U/L Alkaline Phosphatase 88 (38-126) U/L Lactate Dehydrogenase 369 H (120-246) U/L Troponin I (0.000-0.034) ng/mL NT-Pro-B Natriuret Pep (<300) pg/mL Serum Total Protein 7.2 (6.3-8.2) g/dL Albumin 3.4 L (3.5-5.0) g/dL ABO Group Rh Factor Antibody Screen (NEGATIVE) Crossmatch (COMPATIBLE) 04/15/23 04/15/23 04/15/23 Range/Units 15:46 15:46 15:46 WBC (4.0-10.5) x10^3/uL RBC (4.1-5.6) x10^6/uL Hgb (12.5-18.0) g/dL Hct (42-50) % MCV (78-100) fL MCH (26-32) pg MCHC (32-36) g/dL RDW (11.5-14.0) % Plt Count (150-450) x10^3/uL MPV (7.5-11.0) fL Gran % (36.0-66.0) % Immature Gran % (Auto) (0.00-0.4) % Nucleat RBC Rel Count (0.00-0.1) % Eos # (Auto) (0-0.5) x10^3/uL Immature Gran # (Auto) (0.00-0.03) x10^3u/L Absolute Lymphs (auto) (1.0-4.6) x10^3/uL Absolute Monos (auto) (0.0-1.3) x10^3/uL Absolute Nucleated RBC (0.00-0.01) x10^3u/L Lymphocytes % (24.0-44.0) % Monocytes % (0.0-12.0) % Eosinophils % (0.00-5.0) % Basophils % (0.0-0.4) % Absolute Granulocytes (1.4-6.9) x10^3/uL Basophils # (0-0.4) x10^3/uL PT 13.7 H (9.4-12.5) SECONDS INR 1.28 (0.8-3.0) APTT 34.9 (25.1-36.5) SECONDS Sodium (137-145) mmol/L Potassium (3.5-5.1) mmol/L Chloride (98-107) mmol/L Carbon Dioxide (22-30) mmol/L Anion Gap (5-15) MEQ/L BUN (9-20) mg/dL Creatinine (0.66-1.25) mg/dL Estimated GFR ML/MIN Glucose (74-106) mg/dL Calcium (8.4-10.2) mg/dL Total Bilirubin (0.2-1.3) mg/dL AST (17-59) U/L ALT (0-50) U/L Alkaline Phosphatase (38-126) U/L Lactate Dehydrogenase (120-246) U/L Troponin I < 0.012 (0.000-0.034) ng/mL NT-Pro-B Natriuret Pep 1750 (<300) pg/mL Serum Total Protein (6.3-8.2) g/dL Albumin (3.5-5.0) g/dL ABO Group Rh Factor Antibody Screen (NEGATIVE) Crossmatch (COMPATIBLE) 04/15/23 04/15/23 04/15/23 Range/Units 16:45 16:45 16:45 WBC (4.0-10.5) x10^3/uL RBC (4.1-5.6) x10^6/uL Hgb (12.5-18.0) g/dL Hct (42-50) % MCV (78-100) fL MCH (26-32) pg MCHC (32-36) g/dL RDW (11.5-14.0) % Plt Count (150-450) x10^3/uL MPV (7.5-11.0) fL Gran % (36.0-66.0) % Immature Gran % (Auto) (0.00-0.4) % Nucleat RBC Rel Count (0.00-0.1) % Eos # (Auto) (0-0.5) x10^3/uL Immature Gran # (Auto) (0.00-0.03) x10^3u/L Absolute Lymphs (auto) (1.0-4.6) x10^3/uL Absolute Monos (auto) (0.0-1.3) x10^3/uL Absolute Nucleated RBC (0.00-0.01) x10^3u/L Lymphocytes % (24.0-44.0) % Monocytes % (0.0-12.0) % Eosinophils % (0.00-5.0) % Basophils % (0.0-0.4) % Absolute Granulocytes (1.4-6.9) x10^3/uL Basophils # (0-0.4) x10^3/uL PT (9.4-12.5) SECONDS INR (0.8-3.0) APTT (25.1-36.5) SECONDS Sodium (137-145) mmol/L Potassium (3.5-5.1) mmol/L Chloride (98-107) mmol/L Carbon Dioxide (22-30) mmol/L Anion Gap (5-15) MEQ/L BUN (9-20) mg/dL Creatinine (0.66-1.25) mg/dL Estimated GFR ML/MIN Glucose (74-106) mg/dL Calcium (8.4-10.2) mg/dL Total Bilirubin (0.2-1.3) mg/dL AST (17-59) U/L ALT (0-50) U/L Alkaline Phosphatase (38-126) U/L Lactate Dehydrogenase (120-246) U/L Troponin I (0.000-0.034) ng/mL NT-Pro-B Natriuret Pep (<300) pg/mL Serum Total Protein (6.3-8.2) g/dL Albumin (3.5-5.0) g/dL ABO Group O Rh Factor POSITIVE Antibody Screen NEGATIVE (NEGATIVE) Crossmatch COMPATIBLE COMPATIBLE COMPATIBLE (COMPATIBLE) - Radiology Impressions Radiology Exams & Impressions: Radiology Procedures Category Date Time Status CHEST 2 VIEWS (PA AND LAT) Stat Exams 04/15/23 15:42 Taken - Other Procedures and Tests Respiratory Therapy 04/15/23 18:24 Oxygen Nasal Cannula 2 lpm Assessment/Plan (1) Severe anemia Current Visit: Yes Status: Acute Assessment & Plan: Unclear etiology but suspect component of recent blood loss from surgery and hemolysis from valvulopathy. LDH elevated, but not markedly. Will transfuse with IV Lasix dose ordered. Recheck counts post-transfusion. Code(s): D64.9 - ANEMIA, UNSPECIFIED (2) Palpitations Current Visit: Yes Status: Acute Assessment & Plan: Monitor on telemetry. EKG and telemetry thus far unremarkable. Has history of prior atrial fibrillation. Code(s): R00.2 - PALPITATIONS (3) Hypertension Current Visit: No Status: Acute Assessment & Plan: Monitor BP on current regimen. Code(s): I10 - ESSENTIAL (PRIMARY) HYPERTENSION Telemedicine Encounter - Telemedicine Encounter Telemedicine Encounter: The entirety of this encounter was performed via Telemedicine"
--- NOTE | 2023-04-15 20:57 | XRAY ---
Indication: Generalized swelling. Comparison: June 08, 2021 PA/lateral chest now demonstrates cardiomegaly with interval cardiac valve replacement surgery. Grossly stable CT proven Art type B aortic dissection. New small bibasilar effusions, right greater than left. Bony thorax intact. Impression: New findings favoring cardiac decompensation/CHF. Superimposed pneumonia not completely excluded.
[2023-04-15] MEDS: Oxy-IR 5 MG PO PRN (21:35)
[2023-04-15] MEDS ORDERED: ZOCOR 20MG PO SCH (22:00)
[2023-04-15] MEDS ORDERED: Coreg 3.125 MG PO SCH (22:00)
[2023-04-16] MEDS ORDERED: Lasix 20 MG/2 ML IV ONE
[2023-04-16] MEDS: Oxy-IR 5 MG PO PRN (00:53)
[2023-04-16] MEDS: Sodium Chloride 0.9% 1000 ML 1,000 ML IV SCH (05:21)
[2023-04-16 06:12] LABS: Absolute Neutrophil Ct (ANC) 5.37 x10^3/uL (1.4-6.9); BASOPHIL % 0.9 % (0.0-0.4); Basophil (Absolute #) 0.08 x10^3/uL (0-0.4); Eosinophil % 5.1 % (0.00-5.0); Eosinophil (Absolute #) 0.45 x10^3/uL (0-0.5); Hematocrit 27.8 % (42-50); Hemoglobin 8.5 g/dL (12.5-18.0); IMMATURE GRAN # 0.04 x10^3u/L (0.00-0.03); IMMATURE GRAN % 0.5 % (0.00-0.4); Lymphocyte (Absolute #) 1.57 x10^3/uL (1.0-4.6); Lymphocytes % 17.8 % (24.0-44.0); Mean Cell Volume 94.6 fL (78-100); Mean Corpuscular Hemoglobin 28.9 pg (26-32); Mean Corpuscular Hgb Concent. 30.6 g/dL (32-36); Mean Platelet Volume 9.3 fL (7.5-11.0); Monocyte (Absolute #) 1.29 x10^3/uL (0.0-1.3); Monocytes % 14.7 % (0.0-12.0); Platelet Count 430 x10^3/uL (150-450); Red Blood Count 2.94 x10^6/uL (4.1-5.6); Red Cell Distribution Width 15.7 % (11.5-14.0); White Blood Count 8.8 x10^3/uL (4.0-10.5)
[2023-04-16 06:31] LABS: ALBUMIN 3.3 g/dL (3.5-5.0); ALKALINE PHOSPHATASE 84 U/L (38-126); ANION GAP 13.1 MEQ/L (5-15); BLOOD UREA NITROGEN 11 mg/dL (9-20); CHLORIDE 103 mmol/L (98-107); Calcium 8.2 mg/dL (8.4-10.2); Carbon Dioxide 28 mmol/L (22-30); Creatinine 1 0.86 mg/dL (0.66-1.25); EST GLOMERULAR FILTRATION RATE > 60.0 ML/MIN; Glucose 112 mg/dL (74-106); INR 1.23 (0.8-3.0); PROTIME 13.2 SECONDS (9.4-12.5); Potassium 3.5 mmol/L (3.5-5.1); SGOT/AST 20 U/L (17-59); SGPT/ALT 23 U/L (0-50); SODIUM 141 mmol/L (137-145)
[2023-04-16 07:05] VITALS: BP 144/71; PULSE 53; O2SAT 95
[2023-04-16] MEDS ORDERED: Oxy-IR 5 MG PO PRN (07:15)
[2023-04-16] MEDS ORDERED: Lexapro PO SCH (10:00)
[2023-04-16] MEDS ORDERED: Protonix 40MG Tablet PO SCH (10:00)
[2023-04-16] MEDS ORDERED: Coreg PO SCH (10:00)
[2023-04-16] MEDS ORDERED: ECOTRIN 81 MG PO SCH (10:00)
--- NOTE | 2023-04-16 11:40 | PCM.DS ---
Discharge Summary Date of Admission: 04/15/23 18:05 Date of Discharge: 04/16/23 Admitting Physician: EASTON PEÑA MD Primary Care Provider: TY SCHAEFER Allergies Allergies No Known Drug Allergies Allergy (Verified 04/15/23 15:27) Hospital Summary - Hospital Course Hospital Course: Hemoglobin increased after transfusion. LDH elevated; cannot rule out component of hemolysis. No events on telemetry. Plan will be to discharge today and to follow up with PCP and repeat hemoglobin in 2-3 days. The patient was seen and examined via telemedicine. The entirety of this encounter was performed via telemedicine. The patient consented to this telem edicine encounter. - Vitals & Intake/Output Vital Signs: Vital Signs Temperature 98.2 F 04/16/23 07:04 Pulse Rate 53 L 04/16/23 07:04 Respiratory Rate 16 04/16/23 07:04 Blood Pressure 144/71 04/16/23 07:04 O2 Sat by Pulse Oximetry 95 04/16/23 07:17 Intake & Output: Intake & Output 04/13/23 04/14/23 04/15/23 04/16/23 11:59 11:59 11:59 11:59 Intake Total 1380 Output Total 1200 Balance 180 Weight 103.6 kg - Lab Result Diagrams: 04/16/23 06:00 04/16/23 06:00 Lab Results-Last 24 Hrs: Lab Results-Last 24 Hours 04/15/23 04/15/23 04/15/23 Range/Units 01:53 15:45 15:46 WBC 8.1 (4.0-10.5) x10^3/uL RBC 2.27 L (4.1-5.6) x10^6/uL Hgb 6.7 L* (12.5-18.0) g/dL Hct 22.3 L (42-50) % MCV 98.2 (78-100) fL MCH 29.5 (26-32) pg MCHC 30.0 L (32-36) g/dL RDW 15.3 H (11.5-14.0) % Plt Count 447 (150-450) x10^3/uL MPV 8.9 (7.5-11.0) fL Gran % 64.5 (36.0-66.0) % Immature Gran % (Auto) 0.6 H (0.00-0.4) % Nucleat RBC Rel Count 0.0 (0.00-0.1) % Eos # (Auto) 0.37 (0-0.5) x10^3/uL Immature Gran # (Auto) 0.05 H (0.00-0.03) x10^3u/L Absolute Lymphs (auto) 1.31 (1.0-4.6) x10^3/uL Absolute Monos (auto) 1.07 (0.0-1.3) x10^3/uL Absolute Nucleated RBC 0.00 (0.00-0.01) x10^3u/L Lymphocytes % 16.1 L (24.0-44.0) % Monocytes % 13.2 H (0.0-12.0) % Eosinophils % 4.6 (0.00-5.0) % Basophils % 1.0 (0.0-0.4) % Absolute Granulocytes 5.24 (1.4-6.9) x10^3/uL Basophils # 0.08 (0-0.4) x10^3/uL PT (9.4-12.5) SECONDS INR (0.8-3.0) APTT (25.1-36.5) SECONDS Sodium (137-145) mmol/L Potassium (3.5-5.1) mmol/L Chloride (98-107) mmol/L Carbon Dioxide (22-30) mmol/L Anion Gap (5-15) MEQ/L BUN (9-20) mg/dL Creatinine (0.66-1.25) mg/dL Estimated GFR ML/MIN Glucose (74-106) mg/dL Calcium (8.4-10.2) mg/dL Total Bilirubin (0.2-1.3) mg/dL AST (17-59) U/L ALT (0-50) U/L Alkaline Phosphatase (38-126) U/L Lactate Dehydrogenase 369 H (120-246) U/L Troponin I 0.013 (0.000-0.034) ng/mL NT-Pro-B Natriuret Pep (<300) pg/mL Serum Total Protein (6.3-8.2) g/dL Albumin (3.5-5.0) g/dL ABO Group Rh Factor Antibody Screen (NEGATIVE) Crossmatch (COMPATIBLE) 04/15/23 04/15/23 04/15/23 Range/Units 15:46 15:46 15:46 WBC (4.0-10.5) x10^3/uL RBC (4.1-5.6) x10^6/uL Hgb (12.5-18.0) g/dL Hct (42-50) % MCV (78-100) fL MCH (26-32) pg MCHC (32-36) g/dL RDW (11.5-14.0) % Plt Count (150-450) x10^3/uL MPV (7.5-11.0) fL Gran % (36.0-66.0) % Immature Gran % (Auto) (0.00-0.4) % Nucleat RBC Rel Count (0.00-0.1) % Eos # (Auto) (0-0.5) x10^3/uL Immature Gran # (Auto) (0.00-0.03) x10^3u/L Absolute Lymphs (auto) (1.0-4.6) x10^3/uL Absolute Monos (auto) (0.0-1.3) x10^3/uL Absolute Nucleated RBC (0.00-0.01) x10^3u/L Lymphocytes % (24.0-44.0) % Monocytes % (0.0-12.0) % Eosinophils % (0.00-5.0) % Basophils % (0.0-0.4) % Absolute Granulocytes (1.4-6.9) x10^3/uL Basophils # (0-0.4) x10^3/uL PT 13.7 H (9.4-12.5) SECONDS INR 1.28 (0.8-3.0) APTT 34.9 (25.1-36.5) SECONDS Sodium 139 (137-145) mmol/L Potassium 4.5 (3.5-5.1) mmol/L Chloride 103 (98-107) mmol/L Carbon Dioxide 28 (22-30) mmol/L Anion Gap 12.8 (5-15) MEQ/L BUN 10 (9-20) mg/dL Creatinine 0.76 (0.66-1.25) mg/dL Estimated GFR > 60.0 ML/MIN Glucose 109 H (74-106) mg/dL Calcium 8.7 (8.4-10.2) mg/dL Total Bilirubin 0.50 (0.2-1.3) mg/dL AST 20 (17-59) U/L ALT 21 (0-50) U/L Alkaline Phosphatase 88 (38-126) U/L Lactate Dehydrogenase (120-246) U/L Troponin I < 0.012 (0.000-0.034) ng/mL NT-Pro-B Natriuret Pep (<300) pg/mL Serum Total Protein 7.2 (6.3-8.2) g/dL Albumin 3.4 L (3.5-5.0) g/dL ABO Group Rh Factor Antibody Screen (NEGATIVE) Crossmatch (COMPATIBLE) 04/15/23 04/15/23 04/15/23 Range/Units 15:46 16:45 16:45 WBC (4.0-10.5) x10^3/uL RBC (4.1-5.6) x10^6/uL Hgb (12.5-18.0) g/dL Hct (42-50) % MCV (78-100) fL MCH (26-32) pg MCHC (32-36) g/dL RDW (11.5-14.0) % Plt Count (150-450) x10^3/uL MPV (7.5-11.0) fL Gran % (36.0-66.0) % Immature Gran % (Auto) (0.00-0.4) % Nucleat RBC Rel Count (0.00-0.1) % Eos # (Auto) (0-0.5) x10^3/uL Immature Gran # (Auto) (0.00-0.03) x10^3u/L Absolute Lymphs (auto) (1.0-4.6) x10^3/uL Absolute Monos (auto) (0.0-1.3) x10^3/uL Absolute Nucleated RBC (0.00-0.01) x10^3u/L Lymphocytes % (24.0-44.0) % Monocytes % (0.0-12.0) % Eosinophils % (0.00-5.0) % Basophils % (0.0-0.4) % Absolute Granulocytes (1.4-6.9) x10^3/uL Basophils # (0-0.4) x10^3/uL PT (9.4-12.5) SECONDS INR (0.8-3.0) APTT (25.1-36.5) SECONDS Sodium (137-145) mmol/L Potassium (3.5-5.1) mmol/L Chloride (98-107) mmol/L Carbon Dioxide (22-30) mmol/L Anion Gap (5-15) MEQ/L BUN (9-20) mg/dL Creatinine (0.66-1.25) mg/dL Estimated GFR ML/MIN Glucose (74-106) mg/dL Calcium (8.4-10.2) mg/dL Total Bilirubin (0.2-1.3) mg/dL AST (17-59) U/L ALT (0-50) U/L Alkaline Phosphatase (38-126) U/L Lactate Dehydrogenase (120-246) U/L Troponin I (0.000-0.034) ng/mL NT-Pro-B Natriuret Pep 1750 (<300) pg/mL Serum Total Protein (6.3-8.2) g/dL Albumin (3.5-5.0) g/dL ABO Group O Rh Factor POSITIVE Antibody Screen NEGATIVE (NEGATIVE) Crossmatch COMPATIBLE COMPATIBLE (COMPATIBLE) 04/15/23 04/15/23 04/16/23 Range/Units 16:45 19:40 06:00 WBC (4.0-10.5) x10^3/uL RBC (4.1-5.6) x10^6/uL Hgb (12.5-18.0) g/dL Hct (42-50) % MCV (78-100) fL MCH (26-32) pg MCHC (32-36) g/dL RDW (11.5-14.0) % Plt Count (150-450) x10^3/uL MPV (7.5-11.0) fL Gran % (36.0-66.0) % Immature Gran % (Auto) (0.00-0.4) % Nucleat RBC Rel Count (0.00-0.1) % Eos # (Auto) (0-0.5) x10^3/uL Immature Gran # (Auto) (0.00-0.03) x10^3u/L Absolute Lymphs (auto) (1.0-4.6) x10^3/uL Absolute Monos (auto) (0.0-1.3) x10^3/uL Absolute Nucleated RBC (0.00-0.01) x10^3u/L Lymphocytes % (24.0-44.0) % Monocytes % (0.0-12.0) % Eosinophils % (0.00-5.0) % Basophils % (0.0-0.4) % Absolute Granulocytes (1.4-6.9) x10^3/uL Basophils # (0-0.4) x10^3/uL PT 13.2 H (9.4-12.5) SECONDS INR 1.23 (0.8-3.0) APTT (25.1-36.5) SECONDS Sodium (137-145) mmol/L Potassium (3.5-5.1) mmol/L Chloride (98-107) mmol/L Carbon Dioxide (22-30) mmol/L Anion Gap (5-15) MEQ/L BUN (9-20) mg/dL Creatinine (0.66-1.25) mg/dL Estimated GFR ML/MIN Glucose (74-106) mg/dL Calcium (8.4-10.2) mg/dL Total Bilirubin (0.2-1.3) mg/dL AST (17-59) U/L ALT (0-50) U/L Alkaline Phosphatase (38-126) U/L Lactate Dehydrogenase (120-246) U/L Troponin I < 0.012 (0.000-0.034) ng/mL NT-Pro-B Natriuret Pep (<300) pg/mL Serum Total Protein (6.3-8.2) g/dL Albumin (3.5-5.0) g/dL ABO Group Rh Factor Antibody Screen (NEGATIVE) Crossmatch COMPATIBLE (COMPATIBLE) 04/16/23 04/16/23 Range/Units 06:00 06:00 WBC 8.8 (4.0-10.5) x10^3/uL RBC 2.94 L (4.1-5.6) x10^6/uL Hgb 8.5 L D (12.5-18.0) g/dL Hct 27.8 L (42-50) % MCV 94.6 (78-100) fL MCH 28.9 (26-32) pg MCHC 30.6 L (32-36) g/dL RDW 15.7 H (11.5-14.0) % Plt Count 430 (150-450) x10^3/uL MPV 9.3 (7.5-11.0) fL Gran % 61.0 (36.0-66.0) % Immature Gran % (Auto) 0.5 H (0.00-0.4) % Nucleat RBC Rel Count 0.0 (0.00-0.1) % Eos # (Auto) 0.45 (0-0.5) x10^3/uL Immature Gran # (Auto) 0.04 H (0.00-0.03) x10^3u/L Absolute Lymphs (auto) 1.57 (1.0-4.6) x10^3/uL Absolute Monos (auto) 1.29 (0.0-1.3) x10^3/uL Absolute Nucleated RBC 0.00 (0.00-0.01) x10^3u/L Lymphocytes % 17.8 L (24.0-44.0) % Monocytes % 14.7 H (0.0-12.0) % Eosinophils % 5.1 H (0.00-5.0) % Basophils % 0.9 (0.0-0.4) % Absolute Granulocytes 5.37 (1.4-6.9) x10^3/uL Basophils # 0.08 (0-0.4) x10^3/uL PT (9.4-12.5) SECONDS INR (0.8-3.0) APTT (25.1-36.5) SECONDS Sodium 141 (137-145) mmol/L Potassium 3.5 D (3.5-5.1) mmol/L Chloride 103 (98-107) mmol/L Carbon Dioxide 28 (22-30) mmol/L Anion Gap 13.1 (5-15) MEQ/L BUN 11 (9-20) mg/dL Creatinine 0.86 (0.66-1.25) mg/dL Estimated GFR > 60.0 ML/MIN Glucose 112 H (74-106) mg/dL Calcium 8.2 L (8.4-10.2) mg/dL Total Bilirubin 0.50 (0.2-1.3) mg/dL AST 20 (17-59) U/L ALT 23 (0-50) U/L Alkaline Phosphatase 84 (38-126) U/L Lactate Dehydrogenase (120-246) U/L Troponin I (0.000-0.034) ng/mL NT-Pro-B Natriuret Pep (<300) pg/mL Serum Total Protein 7.0 (6.3-8.2) g/dL Albumin 3.3 L (3.5-5.0) g/dL ABO Group Rh Factor Antibody Screen (NEGATIVE) Crossmatch (COMPATIBLE) - Radiology Exams Ordered Rad Exams-Entire Visit: Radiology Procedures Category Date Time Status CHEST 2 VIEWS (PA AND LAT) Stat Exams 04/15/23 15:42 Completed - Procedures and Test Procedures and Tests throughout Hospitalization: Therapy Orders & Screens 04/15/23 18:24 Oxygen Nasal Cannula 2 lpm Comment: 04/15/23 19:51 Smoking Cessation Education ONCE Comment: Diagnosis: severe anemia Smoking Status: Current every day smoker How long have you smoked: 24 yrs Approximately how many cigarettes per day: 4-5 cigs Do you dip or chew tobacco: No Discharge Exam General Appearance: no apparent distress Neurologic Exam: alert, oriented x 3, cooperative, foot cutter II-XII nml as tested, normal mood/affect, nml cerebellar function Eye Exam: PERRL, EOMI, eyes nml inspection Ears, Nose, Throat Exam: normal ENT inspection Neck Exam: normal inspection, non-tender, supple, full range of motion Respiratory Exam: normal breath sounds, lungs clear Cardiovascular Exam: regular rate/rhythm, normal heart sounds Gastrointestinal/Abdomen Exam: soft, normal bowel sounds Back Exam: normal range of motion Extremity Exam: normal inspection, normal range of motion Skin Exam: normal color Final Diagnosis/Problem List - Final Discharge Diagnosis/Problem (1) Severe anemia Current Visit: Yes Status: Acute Assessment & Plan: Transfused Code(s): D64.9 - ANEMIA, UNSPECIFIED (2) Palpitations Current Visit: Yes Status: Acute Assessment & Plan: No events on telemetry Code(s): R00.2 - PALPITATIONS (3) Hypertension Current Visit: No Status: Acute Assessment & Plan: continue regimen Code(s): I10 - ESSENTIAL (PRIMARY) HYPERTENSION - Discharge Disposition: Home, Self-Care Condition: Fair Prescriptions: No Action carvediloL [Carvedilol] 6.25 mg PO BID Atorvastatin Calcium 40 mg PO QHS Escitalopram Oxalate 10 mg PO DAILY Aspirin 81 gm Chew [Baby Aspirin 81 mg Chew] 81 mg PO DAILY Warfarin Sodium 3 mg [Coumadin 3 MG] 3 mg PO 2100 PANTOPRAZOLE 40 mg Tablet [Protonix 40MG Tablet] 40 mg PO DAILY Oxycodone HCl 5 mg PO Q4H PRN PRN PRN Reason: Pain Follow up with: TY SCHAEFER [Primary Care Provider] -
[2023-04-16] MEDS ORDERED: Coumadin 3 MG PO SCH (21:00)
== END 2023-04-16 12:10 | disposition home or self-care (01) ==
LOC: ED 15:21 → MED SURG 18:05
PROVIDERS: ADMIT Internal Medicine; ATTEND Family Medicine
DX: D64.9 Anemia, unspecified (principal); R00.2 Palpitations; I11.0 Hypertensive heart disease with heart failure; I50.9 Heart failure, unspecified; E78.5 Hyperlipidemia, unspecified; Z79.01 Long term (current) use of anticoagulants; Z79.899 Other long term (current) drug therapy; Z20.828 Contact with and (suspected) exposure to other viral communicable diseases; Z72.0 Tobacco use
CPT/HCPCS: 36000; 36415; 36430; 71046; 80053; 83615; 83880; 84484; 85025; 85610; 85730; 86850; 86900; 86901; 86922; 93005; 93268; 94760; 96374; 99285; 99291; G0378; P9016; Q3014; J1940; A9270-GY